=== PATIENT | female | born 1945 | race Caucasian/White ===

== ENCOUNTER 2017-03-22 08:15 | Inpatient (IN) | payer MEDICARE, BC ==
[2017-03-22] MEDS ORDERED: Albuterol/Ipratropium 3.0-0.5 MG/3 ML Neb Soln NEB ONE (09:01)
[2017-03-22] MEDS ORDERED: Sodium Chloride 0.9% 1,000 ML IV ONE (09:02)
[2017-03-22] MEDS ORDERED: cefTRIAXone 1 GM Vial IM ONE (09:54)
[2017-03-22] MEDS ORDERED: Azithromycin 500 MG in Sodium Chloride 0.9% 250 ML IV SCH (10:00)
[2017-03-22] MEDS ORDERED: cefTRIAXone 1 GM in Sodium Chloride 0.9% 50 ML IV ONE (10:50)
--- NOTE | 2017-03-22 11:08 | CR ---
INDICATION: Rales, right base posteriorly, short of breath, weak. CHEST: Portable AP upright view of the chest 03/22/2017 was obtained. No comparisons were available. Hyperaeration and somewhat flattened diaphragm leaves suggest COPD. The chest is rotated to the right, limiting the examination somewhat. There appear to be infiltrates at the right lung base extending into the mid lung field, which may be on the basis of pneumonia. Some atelectatic change could be present. Interstitial changes are also suggested. These may be fibrotic in nature, but should be correlated clinically. The heart size is difficult to evaluate, but did not appear grossly enlarged. Overlying snaps are noted. Cannot exclude scoliosis due to the rotation. IMPRESSION: 1. Possible infiltrate compatible with pneumonia at the right lower lung field and lung base. PA and lateral views, when clinically possible should be of further diagnostic benefit in that regard. 2. Probable COPD. MTDD
[2017-03-22] MEDS ORDERED: Iopamidol 755 Mg/ML 75 ML Bottle IV ONE (11:37)
[2017-03-22] MEDS ORDERED: Bisacodyl 5 MG Tab PO PRN (12:41)
[2017-03-22] MEDS ORDERED: Ondansetron 4 MG Tab.DIS PO PRN (12:41)
[2017-03-22] MEDS ORDERED: Acetaminophen 325 MG Tab PO PRN (12:41)
[2017-03-22] MEDS: Ibuprofen 400 MG Tab PO PRN ×2 (13:57→20:27)
[2017-03-22] MEDS: Enoxaparin 30 MG/0.3 ML Syringe SUBCUT SCH (14:27)
--- NOTE | 2017-03-22 14:42 | CT ---
INDICATION: Short of breath, cough, right middle lobe pneumonia, D-dimer 3,380. CT CHEST ANGIOGRAPHY: Spiral 1.25 mm axial sections were obtained through the chest with 50 mL Isovue 370 at 3 mL/second and with sagittal and coronal reconstructions 03/22/2017 and were compared with a chest x-ray of the same date. No other comparisons are available. Total exam DLP = 252.86 mGy-cm. Fibrotic changes are noted at the lung apices and scattered about the lungs and pleural spaces. Additionally, there may be acute pneumonia present in the area of the superior segment of the left lower lobe and basilar left lower lobe; however, more extensively, there is infiltration in the right lower lobe with pleural reaction - pleuritis, suggesting pneumonia and pleuritis involving much of the right lower lobe. Portions of the middle lobe also show evidence of infiltration, compatible with pneumonia. A portion of these changes may be fibrotic in nature - no comparison studies were available. No gross abnormality of the upper abdomen included was noted. The heart did not appear enlarged. No definite mediastinal masses were identified. Findings compatible with rheumatoid spondylitis are noted in the thoracic spine. An appearance of nodularity at the lingula may represent a small fluid collection in the major fissure in that area (pseudotumor). No true nodularity was identified. Although pneumonia is felt to be most likely with the scattered infiltrates present and pleuritis, the possibility of metastatic disease would also be a consideration. Followup to clearing is recommended, therefore. No definite evidence of pulmonary emboli could be identified. IMPRESSION: 1. No evidence of pulmonary embolus. 2. Fairly extensive infiltration in the right lower lobe, middle lobe, and to a lesser extent left lower lobe. These infiltrates are associated with pleural reactions and likely represent pneumonia and pleuritis. Other etiologies, such as metastatic disease, are felt to be less likely. Followup to clearing is recommended. 3. Rheumatoid spondylitis and dorsal kyphosis. Report was called to Dr. Khoury at 1215 hours on 03/22/2017. [facility]
[2017-03-22] MEDS: Albuterol/Ipratropium 3.0-0.5 MG/3 ML Neb Soln INH SCH ×2 (15:09→20:07)
[2017-03-22] MEDS: Sodium Chloride 0.9% 1,000 ML IV SCH ×2 (15:58→23:58)
--- NOTE | 2017-03-22 18:08 | PCM.HP ---
H&P History of Present Illness - General Date of Service: 03/22/17 Admit Problem/Dx: Admission Diagnosis/Problem Admission Diagnosis/Problem Pneumonia Source of Information: Patient History Limitations: Reports: No limitations - History of Present Illness Initial Comments - Free Text/Narative: This is a 71-year-old female patient states about one week ago she lifted her grandchild and became short of breath. After that she became progressively short of breath to the point where she only take 3 steps last night. She has some chest congestion but no cough. She states she's had fevers and chills all week. She denies nasal congestion, sore throat, headaches, body aches. She has a decreased appetite and generalized weakness and lethargy. Left Chest Pain Score (Numeric/FACES): 6 - Related Data Allergies/Adverse Reactions: Allergies Allergy/AdvReac Type Severity Reaction Status Date / Time No Known Allergies Allergy Verified 03/22/17 08:39 Home Medications: Home Meds Albuterol [Ventolin HFA] 2 puff INH Q4HR 03/22/17 [History] Levothyroxine 112 mcg PO BEDTIME 03/22/17 [History] Simvastatin [Simvastatin] 20 mg PO BEDTIME 03/22/17 [History] Past Medical History Cardiovascular History: Reports: High cholesterol Respiratory History: Reports: Pneumonia, recurrent, SOB, Other (see below) Other Respiratory History: PT CURRENTLY HAS KATRIN. PNEUMONIA. Gastrointestinal History: Reports: Hemorrhoids HIGH [employer]CHO[employer] PROFESSIONAL History: Reports: Other OB/BYN History: has had one ovary removed Musculoskeletal History: Reports: Other (see below) Other Musculoskeletal History: ankylosing spondylitis Endocrine/Metabolic History: Reports: Hypothyroidism - Infectious Disease History Infectious Disease History: Reports: Chicken pox, Measles - Past Surgical History HEENT Surgical History: Reports: Visual GI Surgical History: Reports: Colonoscopy, Other (see below) Other GI Surgeries/Procedures: HAD HEMORROID SURGERY IN PAST Female Surgical History: Reports: Other (see below) Other Female Surgeries/Procedures: HAD ONE OVARY REMOVED. Musculoskeletal Surgical History: Reports: Shoulder surgery, Other (see below) Other Musculoskeletal Surgeries/Procedures:: LEFT SHOULDER TENDON REPAIR Social & Family History - Family History Family Medical History: Noncontributory - Tobacco Use Smoking Status *Q: Former Smoker Years of Tobacco use: 30 Packs/Tins Daily: 1 Used Tobacco, but Quit: No Month Tobacco Last Used: October Second Hand Smoke Exposure: No - Caffeine Use Caffeine Use: Reports: Coffee Caffeine Use Comment: 3 CUPS A DAY - Recreational Drug Use Recreational Drug Use: No H&P Review of Systems - Review of Systems: Review Of Systems: See Below General: Reports: fever, chills, fatigue, decreased appetite HEENT: Reports: no symptoms Pulmonary: Reports: Shortness of Breath. Denies: Wheezing, Pleuritic Chest Pain , Cough, Sputum, Hemoptysis Cardiovascular: Reports: no symptoms Gastrointestinal: Reports: No symptoms Genitourinary: Reports: no symptoms Musculoskeletal: Reports: no symptoms Skin: Reports: no symptoms Psychiatric: Reports: no symptoms Neurological: Reports: No Symptoms Hematologic/Lymphatic: Reports: no symptoms Immunologic: Reports: no symptoms Exam - Exam Exam: See Below - Vital Signs Vital Signs: Last Vital Signs Temp 98.0 F 03/22/17 16:01 Pulse 111 H 03/22/17 16:01 Resp 18 03/22/17 16:01 BP 119/67 03/22/17 16:01 Pulse Ox 91 L 03/22/17 17:50 Weight: 92 lb 5 oz - Exam General: alert, oriented, cooperative HEENT: PERRLA, Hearing intact, Mucosa moist & pink, Nares patent, Normal nasal septum, Posterior pharynx clear, Conjunctiva clear, EOMI, EACs clear, TMs clear Neck: supple, trachea midline Lungs: Clear to auscultation, Normal respiratory effort, Decreased breath sounds Cardiovascular: regular rate, regular rhythm. No: systolic murmur, diastolic murmur Abdomen: normal bowel sounds, soft. No: organomegaly, guarding, rigidity, rebound, tenderness Back Exam: normal inspection Extremities: normal inspection. No: edema Skin: warm, dry, intact Neuro Extensive - Mental Status: alert, oriented x3, normal mood/affect, normal cognition Neuro Extensive - Motor, Sensory, Reflexes: normal gait Psychiatric: alert, normal affect, normal mood - Patient Data Lab Results last 24 hrs: Laboratory Results - last 24 hr 03/22/17 Range/Units 16:00 Lactic Acid 1.6 (0.5-2.2) mmol/L Result Diagrams: 03/22/17 08:55 03/22/17 08:55 *Q Meaningful Use (ADM) - VTE *Q VTE Criteria *Q: - Stroke *Q Stroke Criteria *Q: - AMI *Q AMI Criteria *Q: - Problem List (1) Pneumonia SNOMED Code(s): 898146885 ICD Code: J18.9 - PNEUMONIA, UNSPECIFIED ORGANISM Status: Acute Current Visit: Yes Qualifiers: Laterality: right Lung location: lower lobe of lung Problem List Initiated/Reviewed/Updated: Yes Orders Last 24hrs: Active Orders 24 hr Category Date Time Status C Collar Applied [Spinal Immobilization] [] 08,16,00 Care 03/22/17 12:56 Active VTE/DVT Education [] Per Unit Routine Care 03/22/17 12:41 Active Regular Diet [DIET] Diet 03/22/17 Dinner Active Acetaminophen [Tylenol] Med 03/22/17 12:41 Active 650 mg PO Q4H PRN Albuterol/Ipratropium [DuoNeb 3.0-0.5 MG/3 ML] Med 03/22/17 16:00 Active 3 ml INH QIDRT Azithromycin [Zithromax] 500 mg Med 03/23/17 10:00 Active Sodium Chloride 0.9% [Normal Saline] 250 ml IV Q24H Bisacodyl [Dulcolax] Med 03/22/17 12:41 Active 5 mg PO DAILY PRN Enoxaparin [Lovenox] Med 03/22/17 13:00 Active 30 mg SUBCUT Q24H Ibuprofen [Motrin] Med 03/22/17 12:41 Active 400 mg PO Q6H PRN Levothyroxine Med 03/22/17 21:00 Active 112 mcg PO BEDTIME Ondansetron [Zofran ODT] Med 03/22/17 12:41 Active 4 mg PO Q4H PRN Simvastatin [Zocor] Med 03/22/17 21:00 Active 20 mg PO BEDTIME Sodium Chloride 0.9% [Normal Saline] 1,000 ml Med 03/22/17 13:00 Active IV ASDIRECTED cefTRIAXone [Rocephin] 1 gm Med 03/23/17 11:00 Active Sodium Chloride 0.9% [Normal Saline] 50 ml IV Q24H Medication Orders Acetaminophen (Tylenol) 650 mg PO Q4H PRN PRN Reason: Pain (Mild 1-3)/fever Albuterol/Ipratropium (Duoneb 3.0-0.5 Mg/3 Ml) 3 ml INH QIDRT [facility] Last Admin: 03/22/17 15:09 Dose: 3 ml Bisacodyl (Dulcolax) 5 mg PO DAILY PRN PRN Reason: Constipation Enoxaparin Sodium (Lovenox) 30 mg SUBCUT Q24H [facility] Last Admin: 03/22/17 14:27 Dose: 30 mg Sodium Chloride (Normal Saline) 1,000 mls @ 125 mls/hr IV ASDIRECTED [facility] Last Admin: 03/22/17 15:58 Dose: 125 mls/hr Azithromycin 500 mg/ Sodium (Chloride) 250 mls @ 250 mls/hr IV Q24H [facility] Ceftriaxone Sodium 1 gm/ (Sodium Chloride) 50 mls @ 100 mls/hr IV Q24H [facility] Ibuprofen (Motrin) 400 mg PO Q6H PRN PRN Reason: Pain (mild 1-3) Last Admin: 03/22/17 13:57 Dose: 400 mg Levothyroxine Sodium (Levothyroxine) 112 mcg PO BEDTIME [facility] Ondansetron HCl (Zofran Odt) 4 mg PO Q4H PRN PRN Reason: nausea, able to take PO Simvastatin (Zocor) 20 mg PO BEDTIME [facility] Assessment/Plan Comment:: 1. Admit for Rocephin and Zithromax. 2. Reviewed CT report of chest x-ray report. 3. O2 to keep sats greater than 90% nasal cannula. 4. IV fluids. 5. Regular diet. 6. Up ad jane. for activity. 7. Recheck CBC in a.m. 8. Nebulizers every 4 hours and q. 2 hours when necessary.
[2017-03-22] MEDS: Simvastatin 20 MG Tab PO SCH (20:27)
[2017-03-22] MEDS: Levothyroxine 112 MCG Tab PO SCH (20:27)
[2017-03-23] MEDS: Albuterol/Ipratropium 3.0-0.5 MG/3 ML Neb Soln INH SCH ×4 (06:28→20:31)
[2017-03-23] MEDS: Sodium Chloride 0.9% 1,000 ML IV SCH (07:43)
--- NOTE | 2017-03-23 08:50 | PCM.PN ---
- General Info Date of Service: 03/23/17 Admission Dx/Problem (Free Text): Patient states that she had no fevers or chills last night. Breathing maybe a little bit better in the fact that she didn't have any wheezing or chest congestion. She still feels weak and with very little appetite. She does not have a cough and has not had one. Denies chest pain. Denies leg swelling. - Patient Data Vitals - most recent: Last Vital Signs Temp 98.3 F 03/23/17 04:00 Pulse 95 03/23/17 04:00 Resp 18 03/23/17 04:00 BP 102/48 L 03/23/17 04:00 Pulse Ox 93 L 03/23/17 04:00 Weight - most recent: 92 lb 5 oz I&O - last 24 hours: Intake & Output 03/22/17 03/23/17 03/23/17 22:59 06:59 14:59 Intake Total 1321 779 Balance 1321 779 Lab Results last 24 hrs: Laboratory Results - last 24 hr 03/22/17 03/23/17 Range/Units 16:00 06:25 WBC 15.6 H (4.5-12.0) X10-3/uL RBC 3.59 (3.23-5.20) x10(6)uL Hgb 10.6 L (11.5-15.5) g/dL Hct 31.2 (30.0-51.3) % MCV 86.9 (80-96) fL MCH 29.5 (27.7-33.6) pg MCHC 34.0 (32.2-35.4) g/dL RDW 12.2 (11.5-15.5) % Plt Count 252 (125-369) X10(3)uL MPV 7.7 (7.4-10.4) fL Add Manual Diff Yes Neutrophils % (Manual) 69 (46-82) % Band Neutrophils % 10 H (0-6) % Lymphocytes % (Manual) 7 L (13-37) % Monocytes % (Manual) 14 H (4-12) % Lactic Acid 1.6 (0.5-2.2) mmol/L Med Orders - Current: Current Medications Acetaminophen (Tylenol) 650 mg PO Q4H PRN PRN Reason: Pain (Mild 1-3)/fever Albuterol/Ipratropium (Duoneb 3.0-0.5 Mg/3 Ml) 3 ml INH QIDRT [facility] Last Admin: 03/23/17 06:28 Dose: 3 ml Bisacodyl (Dulcolax) 5 mg PO DAILY PRN PRN Reason: Constipation Enoxaparin Sodium (Lovenox) 30 mg SUBCUT Q24H [facility] Last Admin: 03/22/17 14:27 Dose: 30 mg Sodium Chloride (Normal Saline) 1,000 mls @ 125 mls/hr IV ASDIRECTED [facility] Last Admin: 03/23/17 07:43 Dose: 125 mls/hr Azithromycin 500 mg/ Sodium (Chloride) 250 mls @ 250 mls/hr IV Q24H [facility] Ceftriaxone Sodium 1 gm/ (Sodium Chloride) 50 mls @ 100 mls/hr IV Q24H [facility] Ibuprofen (Motrin) 400 mg PO Q6H PRN PRN Reason: Pain (mild 1-3) Last Admin: 03/22/17 20:27 Dose: 400 mg Levothyroxine Sodium (Levothyroxine) 112 mcg PO BEDTIME [facility] Last Admin: 03/22/17 20:27 Dose: 112 mcg Ondansetron HCl (Zofran Odt) 4 mg PO Q4H PRN PRN Reason: nausea, able to take PO Simvastatin (Zocor) 20 mg PO BEDTIME [facility] Last Admin: 03/22/17 20:27 Dose: 20 mg Discontinued Medications Albuterol/Ipratropium (Duoneb 3.0-0.5 Mg/3 Ml) 3 ml NEB ONETIME ONE Stop: 03/22/17 09:02 Last Admin: 03/22/17 09:17 Dose: 3 ml Ceftriaxone Sodium (Rocephin) 1 gm IM ONETIME ONE Stop: 03/22/17 09:55 Last Admin: 03/22/17 12:22 Dose: Not Given Sodium Chloride (Normal Saline) 1,000 mls @ 999 mls/hr IV .BOLUS ONE Stop: 03/22/17 10:02 Last Infusion: 03/22/17 09:43 Dose: 100 mls/hr Azithromycin 500 mg/ Sodium (Chloride) 250 mls @ 250 mls/hr IV Q24H [facility] Last Admin: 03/22/17 12:01 Dose: 250 mls/hr Ceftriaxone Sodium 1 gm/ (Sodium Chloride) 50 mls @ 200 mls/hr IV ONETIME ONE Stop: 03/22/17 11:04 Last Admin: 03/22/17 11:07 Dose: 200 mls/hr Iopamidol (Isovue-370 (76%)) 75 ml IV ONETIME ONE Stop: 03/22/17 11:38 Last Admin: 03/22/17 11:43 Dose: 50 ml - Exam General: alert, oriented, cooperative Neck: supple, trachea midline Lungs: Clear to auscultation, Decreased breath sounds. No: Crackles, Rales, Rhonchi, Rub Cardiovascular: Regular Rate, Regular Rhythm. No: No Murmurs Extremities: no edema - Problem List & Annotations (1) Pneumonia SNOMED Code(s): 063762650 Code(s): J18.9 - PNEUMONIA, UNSPECIFIED ORGANISM Status: Acute Current Visit: Yes Qualifiers: Laterality: right Lung location: lower lobe of lung - Problem List Review Problem List Initiated/Reviewed/Updated: Yes - My Orders Last 24 Hours: My Active Orders 03/22/17 Dinner Regular Diet [DIET] - Plan Plan:: 1. continue current antibiotic treatment. 2. Change IV fluids to D5 half-normal at 100 mL an hour. 3. Patient is a full code after discussion. 4. Sputum culture.
[2017-03-23] MEDS: Dextrose 5%-0.45% NaCl 1,000 ML IV SCH ×2 (09:06→21:00)
[2017-03-23] MEDS: Azithromycin 500 MG in Sodium Chloride 0.9% 250 ML IV SCH (10:10)
[2017-03-23] MEDS: cefTRIAXone 1 GM in Sodium Chloride 0.9% 50 ML IV SCH (11:34)
[2017-03-23] MEDS: Enoxaparin 30 MG/0.3 ML Syringe SUBCUT SCH (13:55)
[2017-03-23] MEDS: Glycerin Adult 2.1 GM Supp RECTAL SCH ×2 (15:44→20:31)
[2017-03-23] MEDS: Levothyroxine 112 MCG Tab PO SCH (20:31)
[2017-03-23] MEDS: Simvastatin 20 MG Tab PO SCH (20:31)
[2017-03-23] MEDS: Ibuprofen 400 MG Tab PO PRN (20:31)
[2017-03-24] MEDS: Dextrose 5%-0.45% NaCl 1,000 ML IV SCH (06:19)
[2017-03-24] MEDS: Albuterol/Ipratropium 3.0-0.5 MG/3 ML Neb Soln INH SCH ×4 (06:20→20:01)
--- NOTE | 2017-03-24 08:06 | PCM.PN ---
- General Info Date of Service: 03/24/17 Admission Dx/Problem (Free Text): Patient states she feels much better. She denies fevers, chills, shortness of breath. She's off her oxygen. She states she's able to walk the halls without any shortness of breath. But she does qualify that she is walking slow and not my usual pace. She denies coughing. She says she's not sleeping and would like something for sleep she also takes 2 Advil 200 mg before bedtime for aches and pains. - Patient Data Vitals - most recent: Last Vital Signs Temp 97.7 F 03/24/17 04:00 Pulse 82 03/24/17 04:00 Resp 20 03/24/17 04:00 BP 127/67 03/24/17 04:00 Pulse Ox 93 L 03/24/17 04:00 Weight - most recent: 92 lb 5 oz I&O - last 24 hours: Intake & Output 03/23/17 03/24/17 03/24/17 22:59 06:59 14:59 Intake Total 899 698 Balance 899 698 Med Orders - Current: Current Medications Acetaminophen (Tylenol) 650 mg PO Q4H PRN PRN Reason: Pain (Mild 1-3)/fever Albuterol/Ipratropium (Duoneb 3.0-0.5 Mg/3 Ml) 3 ml INH QIDRT [facility] Last Admin: 03/24/17 06:20 Dose: 3 ml Bisacodyl (Dulcolax) 5 mg PO DAILY PRN PRN Reason: Constipation Enoxaparin Sodium (Lovenox) 30 mg SUBCUT Q24H [facility] Last Admin: 03/23/17 13:55 Dose: 30 mg Glycerin (Sani-Supp Adult) 1 supp RECTAL BID [facility] Last Admin: 03/23/17 20:31 Dose: 1 supp Azithromycin 500 mg/ Sodium (Chloride) 250 mls @ 250 mls/hr IV Q24H [facility] Last Admin: 03/23/17 10:10 Dose: 250 mls/hr Ceftriaxone Sodium 1 gm/ (Sodium Chloride) 50 mls @ 100 mls/hr IV Q24H [facility] Last Admin: 03/23/17 11:34 Dose: 100 mls/hr Ibuprofen (Motrin) 400 mg PO Q6H PRN PRN Reason: Pain (mild 1-3) Last Admin: 03/23/17 20:31 Dose: 400 mg Ibuprofen (Motrin) 400 mg PO BEDTIME [facility] Levothyroxine Sodium (Levothyroxine) 112 mcg PO BEDTIME [facility] Last Admin: 03/23/17 20:31 Dose: 112 mcg Ondansetron HCl (Zofran Odt) 4 mg PO Q4H PRN PRN Reason: nausea, able to take PO Simvastatin (Zocor) 20 mg PO BEDTIME [facility] Last Admin: 03/23/17 20:31 Dose: 20 mg Zolpidem Tartrate (Ambien) 5 mg PO BEDTIME [facility] Discontinued Medications Albuterol/Ipratropium (Duoneb 3.0-0.5 Mg/3 Ml) 3 ml NEB ONETIME ONE Stop: 03/22/17 09:02 Last Admin: 03/22/17 09:17 Dose: 3 ml Ceftriaxone Sodium (Rocephin) 1 gm IM ONETIME ONE Stop: 03/22/17 09:55 Last Admin: 03/22/17 12:22 Dose: Not Given Sodium Chloride (Normal Saline) 1,000 mls @ 999 mls/hr IV .BOLUS ONE Stop: 03/22/17 10:02 Last Infusion: 03/22/17 09:43 Dose: 100 mls/hr Azithromycin 500 mg/ Sodium (Chloride) 250 mls @ 250 mls/hr IV Q24H [facility] Last Admin: 03/22/17 12:01 Dose: 250 mls/hr Ceftriaxone Sodium 1 gm/ (Sodium Chloride) 50 mls @ 200 mls/hr IV ONETIME ONE Stop: 03/22/17 11:04 Last Admin: 03/22/17 11:07 Dose: 200 mls/hr Sodium Chloride (Normal Saline) 1,000 mls @ 125 mls/hr IV ASDIRECTED [facility] Last Admin: 03/23/17 07:43 Dose: 125 mls/hr Dextrose/Sodium Chloride (Dextrose 5%-1/2 Ns) 1,000 mls @ 100 mls/hr IV ASDIRECTED [facility] Last Admin: 03/24/17 06:19 Dose: 100 mls/hr Iopamidol (Isovue-370 (76%)) 75 ml IV ONETIME ONE Stop: 03/22/17 11:38 Last Admin: 03/22/17 11:43 Dose: 50 ml - Exam Quality Assessment: No: supplemental oxygen General: alert, oriented, cooperative Lungs: Clear to auscultation, Normal respiratory effort, Decreased breath sounds (But improved). No: Crackles, Rales, Rhonchi Cardiovascular: Regular Rate, Regular Rhythm. No: No Murmurs Extremities: no edema - Problem List & Annotations (1) Pneumonia SNOMED Code(s): 966491246 Code(s): J18.9 - PNEUMONIA, UNSPECIFIED ORGANISM Status: Acute Current Visit: Yes Qualifiers: Laterality: right Lung location: lower lobe of lung - Problem List Review Problem List Initiated/Reviewed/Updated: Yes - My Orders Last 24 Hours: My Active Orders 03/23/17 08:50 CULTURE SPUTUM + SMEAR [RM] Routine Resuscitation Status Routine 03/23/17 14:45 Glycerin [Sani-Supp Adult] 1 supp RECTAL BID 03/24/17 08:03 Convert IV to Saline Lock [OM.PC] Routine 03/24/17 21:00 Ibuprofen [Motrin] 400 mg PO BEDTIME Zolpidem [Ambien] 5 mg PO BEDTIME - Plan Plan:: 1. DC IV fluids 2. Saline lock IV. 3. 5 mg Ambien each bedtime. 4. 200 mg Advil at at bedtime. 5. Continue Zithromax and Rocephin IV.
[2017-03-24] MEDS: Glycerin Adult 2.1 GM Supp RECTAL SCH ×2 (08:27→20:00)
[2017-03-24] MEDS: Azithromycin 500 MG in Sodium Chloride 0.9% 250 ML IV SCH (09:44)
[2017-03-24] MEDS: cefTRIAXone 1 GM in Sodium Chloride 0.9% 50 ML IV SCH (11:09)
[2017-03-24] MEDS: Enoxaparin 30 MG/0.3 ML Syringe SUBCUT SCH (13:37)
[2017-03-24] MEDS: Levothyroxine 112 MCG Tab PO SCH (20:00)
[2017-03-24] MEDS: Simvastatin 20 MG Tab PO SCH (20:01)
[2017-03-24] MEDS ORDERED: Ibuprofen 400 MG Tab PO SCH (21:00)
[2017-03-24] MEDS ORDERED: Zolpidem 5 MG Tab PO SCH (21:00)
[2017-03-25] MEDS: Albuterol/Ipratropium 3.0-0.5 MG/3 ML Neb Soln INH SCH (06:30)
--- NOTE | 2017-03-25 08:09 | PCM.PN ---
- General Info Date of Service: 03/25/17 Admission Dx/Problem (Free Text): Patient with no concerns today. She denies cough, fevers, chills, shortness of breath, leg swelling. She is able to tolerate fluids and food today. - Patient Data Vitals - most recent: Last Vital Signs Temp 98.5 F 03/25/17 00:00 Pulse 88 03/25/17 00:00 Resp 18 03/25/17 00:00 BP 138/73 03/25/17 00:00 Pulse Ox 90 L 03/25/17 00:00 Weight - most recent: 92 lb 5 oz I&O - last 24 hours: Intake & Output 03/24/17 03/25/17 03/25/17 22:59 06:59 14:59 Intake Total 0 Balance 0 Med Orders - Current: Current Medications Acetaminophen (Tylenol) 650 mg PO Q4H PRN PRN Reason: Pain (Mild 1-3)/fever Albuterol/Ipratropium (Duoneb 3.0-0.5 Mg/3 Ml) 3 ml INH QIDRT [facility] Last Admin: 03/25/17 06:30 Dose: 3 ml Bisacodyl (Dulcolax) 5 mg PO DAILY PRN PRN Reason: Constipation Enoxaparin Sodium (Lovenox) 30 mg SUBCUT Q24H [facility] Last Admin: 03/24/17 13:37 Dose: 30 mg Glycerin (Sani-Supp Adult) 1 supp RECTAL BID [facility] Last Admin: 03/24/17 20:00 Dose: Not Given Azithromycin 500 mg/ Sodium (Chloride) 250 mls @ 250 mls/hr IV Q24H [facility] Last Admin: 03/24/17 09:44 Dose: 250 mls/hr Ceftriaxone Sodium 1 gm/ (Sodium Chloride) 50 mls @ 100 mls/hr IV Q24H [facility] Last Admin: 03/24/17 11:09 Dose: 100 mls/hr Ibuprofen (Motrin) 400 mg PO Q6H PRN PRN Reason: Pain (mild 1-3) Last Admin: 03/23/17 20:31 Dose: 400 mg Ibuprofen (Motrin) 400 mg PO BEDTIME [facility] Last Admin: 03/24/17 20:01 Dose: 400 mg Levothyroxine Sodium (Levothyroxine) 112 mcg PO BEDTIME [facility] Last Admin: 03/24/17 20:00 Dose: 112 mcg Ondansetron HCl (Zofran Odt) 4 mg PO Q4H PRN PRN Reason: nausea, able to take PO Simvastatin (Zocor) 20 mg PO BEDTIME [facility] Last Admin: 03/24/17 20:01 Dose: 20 mg Zolpidem Tartrate (Ambien) 5 mg PO BEDTIME [facility] Last Admin: 03/24/17 20:00 Dose: 5 mg Discontinued Medications Albuterol/Ipratropium (Duoneb 3.0-0.5 Mg/3 Ml) 3 ml NEB ONETIME ONE Stop: 03/22/17 09:02 Last Admin: 03/22/17 09:17 Dose: 3 ml Ceftriaxone Sodium (Rocephin) 1 gm IM ONETIME ONE Stop: 03/22/17 09:55 Last Admin: 03/22/17 12:22 Dose: Not Given Sodium Chloride (Normal Saline) 1,000 mls @ 999 mls/hr IV .BOLUS ONE Stop: 03/22/17 10:02 Last Infusion: 03/22/17 09:43 Dose: 100 mls/hr Azithromycin 500 mg/ Sodium (Chloride) 250 mls @ 250 mls/hr IV Q24H [facility] Last Admin: 03/22/17 12:01 Dose: 250 mls/hr Ceftriaxone Sodium 1 gm/ (Sodium Chloride) 50 mls @ 200 mls/hr IV ONETIME ONE Stop: 03/22/17 11:04 Last Admin: 03/22/17 11:07 Dose: 200 mls/hr Sodium Chloride (Normal Saline) 1,000 mls @ 125 mls/hr IV ASDIRECTED [facility] Last Admin: 03/23/17 07:43 Dose: 125 mls/hr Dextrose/Sodium Chloride (Dextrose 5%-1/2 Ns) 1,000 mls @ 100 mls/hr IV ASDIRECTED [facility] Last Admin: 03/24/17 06:19 Dose: 100 mls/hr Iopamidol (Isovue-370 (76%)) 75 ml IV ONETIME ONE Stop: 03/22/17 11:38 Last Admin: 03/22/17 11:43 Dose: 50 ml - Exam General: alert, oriented, cooperative Neck: supple Lungs: Clear to auscultation, Normal respiratory effort, Decreased breath sounds. No: Crackles, Rales, Rhonchi Cardiovascular: Regular Rate, Regular Rhythm, Murmurs (Systolic) Extremities: no edema - Problem List & Annotations (1) Pneumonia SNOMED Code(s): 957090838 Code(s): J18.9 - PNEUMONIA, UNSPECIFIED ORGANISM Status: Acute Current Visit: Yes Qualifiers: Laterality: right Lung location: lower lobe of lung (2) Systolic murmur SNOMED Code(s): 20099650 Code(s): R01.1 - CARDIAC MURMUR, UNSPECIFIED Status: Acute Current Visit : Yes - Problem List Review Problem List Initiated/Reviewed/Updated: Yes - My Orders Last 24 Hours: My Active Orders 03/24/17 08:03 Convert IV to Saline Lock [OM.PC] Routine 03/24/17 21:00 Ibuprofen [Motrin] 400 mg PO BEDTIME Zolpidem [Ambien] 5 mg PO BEDTIME - Plan Plan:: 1. on previous exams I did not hear her murmur. Since it was new to me and what looked on the old chart and it's been documented before. 2. Discharge to home on Zithromax and Augmentin. 3. Recheck with Dr. Junior in 7-10 days.
--- NOTE | 2017-03-25 08:28 | PCM.DCSUM1 ---
Discharge Summary - Hospital Course Free Text/Narrative:: Hospital course-patient had chest x-ray that showed right lower lobe pneumonia. The argon did a d-dimer that was elevated so we did a CT which showed right middle, right lower lobe and a little bit in the left lower lobe pneumonia. Patient was hypoxic and admitted. She started Rocephin and Zithromax IV with IV fluids. She had decreased appetite. Her white count was 18,000. The steroid, down to 15. Patient felt much better. By the end of day 2 she was able to be get off her oxygen. Continued her IV antibiotics while she was here. Patient had a very quick recovery. Did not repeat chest x-rays or lab work after the second day because of her progress. Brief History: his is a 71-year-old female patient states about one week ago she lifted her grandchild and became short of breath. After that she became progressively short of breath to the point where she only take 3 steps last night. She has some chest congestion but no cough. She states she's had fevers and chills all week. She denies nasal congestion, sore throat, headaches , body aches. She has a decreased appetite and generalized weakness and lethargy. - Discharge Data Discharge Date: 03/25/17 Discharge Disposition: Home, Self-Care 01 Condition: Good - Discharge Diagnosis/Problem(s) (1) Pneumonia SNOMED Code(s): 320613571 ICD Code: J18.9 - PNEUMONIA, UNSPECIFIED ORGANISM Status: Acute Current Visit: Yes Qualifiers: Laterality: unspecified laterality Lung location: lower lobe of lung (2) Hypoxia SNOMED Code(s): 560666364, 835591431 ICD Code: R09.02 - HYPOXEMIA Status: Acute Current Visit: Yes - Patient Instructions Diet: Regular Diet as Tolerated Activity: As Tolerated Driving: May Drive Today Showering/Bathing: May Shower Notify Provider of: Fever, Increased Pain, Nausea and/or Vomiting Other/Special Instructions: 1. Recheck with Dr. Junior in 7-10 days - Discharge Plan Prescriptions/Med Rec: Amoxicillin/Clavulanate K [Augmentin 500 MG\125 MG] 1 tab PO TID #24 tab Azithromycin [Zithromax] 250 mg PO DAILY #3 tablet Home Medications: Home Meds Albuterol [Ventolin HFA] 2 puff INH Q4HR 04/21/17 [History] Levothyroxine 112 mcg PO BEDTIME 03/22/17 [History] Simvastatin 20 mg PO BEDTIME 03/22/17 [History] Amoxicillin/Clavulanate K [Augmentin 500 MG\125 MG] 1 tab PO TID #24 tab [Rx] Azithromycin [Zithromax] 250 mg PO DAILY #3 tablet 03/25/17 [Rx] Patient Handouts: Fall Prevention in Hospitals, Adult, Venous Thromboembolism Prevention, Community-Acquired Pneumonia, Adult, [id number] Forms: ED Department Discharge Referrals: Brennan Junior MD [Primary Care Provider] - - Discharge Summary/Plan Comment DC Time >30 min.: No - Patient Data Vitals - Most Recent: Last Vital Signs Temp 98.5 F 03/25/17 00:00 Pulse 88 03/25/17 00:00 Resp 18 03/25/17 00:00 BP 138/73 03/25/17 00:00 Pulse Ox 90 L 03/25/17 00:00 Weight - Most Recent: 92 lb 5 oz I&O - Last 24 hours: Intake & Output 03/24/17 03/25/17 03/25/17 22:59 06:59 14:59 Intake Total 0 Balance 0 Med Orders - Current: Current Medications Acetaminophen (Tylenol) 650 mg PO Q4H PRN PRN Reason: Pain (Mild 1-3)/fever Albuterol/Ipratropium (Duoneb 3.0-0.5 Mg/3 Ml) 3 ml INH QIDRT [facility] Last Admin: 03/25/17 06:30 Dose: 3 ml Bisacodyl (Dulcolax) 5 mg PO DAILY PRN PRN Reason: Constipation Enoxaparin Sodium (Lovenox) 30 mg SUBCUT Q24H [facility] Last Admin: 03/24/17 13:37 Dose: 30 mg Glycerin (Sani-Supp Adult) 1 supp RECTAL BID [facility] Last Admin: 03/24/17 20:00 Dose: Not Given Azithromycin 500 mg/ Sodium (Chloride) 250 mls @ 250 mls/hr IV Q24H [facility] Last Admin: 03/24/17 09:44 Dose: 250 mls/hr Ceftriaxone Sodium 1 gm/ (Sodium Chloride) 50 mls @ 100 mls/hr IV Q24H [facility] Last Admin: 03/24/17 11:09 Dose: 100 mls/hr Ibuprofen (Motrin) 400 mg PO Q6H PRN PRN Reason: Pain (mild 1-3) Last Admin: 03/23/17 20:31 Dose: 400 mg Ibuprofen (Motrin) 400 mg PO BEDTIME [facility] Last Admin: 03/24/17 20:01 Dose: 400 mg Levothyroxine Sodium (Levothyroxine) 112 mcg PO BEDTIME [facility] Last Admin: 03/24/17 20:00 Dose: 112 mcg Ondansetron HCl (Zofran Odt) 4 mg PO Q4H PRN PRN Reason: nausea, able to take PO Simvastatin (Zocor) 20 mg PO BEDTIME [facility] Last Admin: 03/24/17 20:01 Dose: 20 mg Zolpidem Tartrate (Ambien) 5 mg PO BEDTIME [facility] Last Admin: 03/24/17 20:00 Dose: 5 mg Discontinued Medications Albuterol/Ipratropium (Duoneb 3.0-0.5 Mg/3 Ml) 3 ml NEB ONETIME ONE Stop: 03/22/17 09:02 Last Admin: 03/22/17 09:17 Dose: 3 ml Ceftriaxone Sodium (Rocephin) 1 gm IM ONETIME ONE Stop: 03/22/17 09:55 Last Admin: 03/22/17 12:22 Dose: Not Given Sodium Chloride (Normal Saline) 1,000 mls @ 999 mls/hr IV .BOLUS ONE Stop: 03/22/17 10:02 Last Infusion: 03/22/17 09:43 Dose: 100 mls/hr Azithromycin 500 mg/ Sodium (Chloride) 250 mls @ 250 mls/hr IV Q24H [facility] Last Admin: 03/22/17 12:01 Dose: 250 mls/hr Ceftriaxone Sodium 1 gm/ (Sodium Chloride) 50 mls @ 200 mls/hr IV ONETIME ONE Stop: 03/22/17 11:04 Last Admin: 03/22/17 11:07 Dose: 200 mls/hr Sodium Chloride (Normal Saline) 1,000 mls @ 125 mls/hr IV ASDIRECTED [facility] Last Admin: 03/23/17 07:43 Dose: 125 mls/hr Dextrose/Sodium Chloride (Dextrose 5%-1/2 Ns) 1,000 mls @ 100 mls/hr IV ASDIRECTED [facility] Last Admin: 03/24/17 06:19 Dose: 100 mls/hr Iopamidol (Isovue-370 (76%)) 75 ml IV ONETIME ONE Stop: 03/22/17 11:38 Last Admin: 03/22/17 11:43 Dose: 50 ml *Q Meaningful Use (DIS) - VTE *Q VTE Criteria *Q: - Stroke *Q Stroke Criteria *Q: - AMI *Q AMI Criteria *Q:
[2017-03-25] MEDS: Glycerin Adult 2.1 GM Supp RECTAL SCH (08:49)
[2017-03-25 09:22] VITALS: BP 160/87
--- NOTE | 2017-03-26 10:32 | ER ---
DATE SEEN: 03/22/2017 TIME SEEN: The patient was seen at 0815 hours. HISTORY OF PRESENT ILLNESS: This 71-year-old woman comes in with a history of increased shortness of breath, occasional coughing, onset 03/18/2017 associated with low-grade temperature 100.8 yesterday, dyspnea on exertion, less than 10 steps, increased cough while lying on her back especially if she lays on her side, new onset of grunting with expiration, increased malaise, weakness, tiredness. For the past 3 to 4 days, she is lying in the bed because she is so weak. She does not use oxygen. She is a [id number] smoker, stopped many years ago. Drinks alcohol equivalent of 14 g pure alcohol (5 ounces of table wine daily). Has had pneumococcal vaccine, Prevnar 13 and flu vaccine in 2014 and 2016. The patient denies chest pain or orthopnea. She has ankylosing spondylitis and a weak neck, consequently uses her soft collar on her neck intermittently. She has noted increased weakness now with this illness and consequently has her collar on presently. PAST MEDICAL HISTORY: Diagnosis of ankylosing spondylitis. She has low body weight 43 kilos, BMI 18.5 kilos/m2. 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 ALLERGIES: None. MEDICATIONS: 1. Acetaminophen. 2. Albuterol. 3. Levothyroxine 115 mcg daily. 4. Simvastatin 40 mg at bedtime. PAST SURGICAL HISTORY: Tubal ligation, hemorrhoidectomy, laparoscopic oophorectomy, rotator cuff anchor, colonoscopy. FAMILY HISTORY: Father and mother , father of cancer of pancreas. Mother with cancer of the abdomen. Two brothers have dyslipidemia and two brothers have hypertension. Two children, . REVIEW OF SYSTEMS: HEENT: Slightly decreased hearing. CARDIOVASCULAR AND GI: Negative. No reflux. ENDOCRINE: Negative except for thyroid treated. : Denies frequency, urgency, dysuria, enuresis, or flank pain. MUSCULOSKELETAL: Neck discomfort, chronic intermittently secondary to her ankylosing spondylitis. NEUROLOGIC: Negative. HEMATOLOGIC: Negative. PSYCHIATRIC: Negative. PHYSICAL EXAMINATION: VITAL SIGNS: Blood pressure 161/96, heart rate 102, respirations 22, oxygen saturation 87, temperature is 37.7 degrees centigrade. HEENT: PERRLA intact. Pharynx without abnormality. Atraumatic. Eyes, EOMs normal. NECK: Mild kyphosis. Decreased range of motion. No tracheal deviation. CARDIOVASCULAR: Sinus tachycardia with supraventricular bigeminy, LVH, poor R-wave progression, V1 to V3, rule out old anterior myocardial infarction, age indeterminate. DIAGNOSTIC DATA: Chest x-ray, moderate chronic obstructive lung disease - emphysema with hyperaeration and infiltrate noted in the right side and left side. Right middle lobe infiltrate/left lower lobe infiltrate. LABORATORY FINDINGS: D-dimer 3880. White count 18,700, PMNs 80, lymphs 3, bandemia 5, monocytes 12, hemoglobin 12.4, platelets 291,000. Complete metabolic panel negative except for mild hypochloremia of 99, creatinine 0.5, BUN 18. BUN and creatinine ratio 36 reflecting dehydration. Glucose 144 secondary to stress, perhaps stress reaction. Alkaline phosphatase elevated 153, troponin less than 0.01. Blood cultures x2 obtained. EMERGENCY DEPARTMENT COURSE: The patient received DuoNeb and O2 support, nasal cannula 1.5 L, brought the oxygen saturation down to 92%. Because of the patient's elevated D-dimer, a CAT scan of the chest was performed. No evidence for PE, but she has bilateral pneumonia at lower bases. PLAN: 1. The patient will be admitted. She has community-acquired pneumonia. We will start Rocephin and azithromycin. 2. Enoxaparin 30 mg q.24 hours to prevent potential DVT. 3. Elevated D-dimer, etiology indeterminate. O2 support nasal cannula, q.i.d. DuoNeb. The patient admitted to Dr. Goodson's Service. Dr. Goodson has been notified. DIAGNOSES: 1. Bilateral pneumonia. 2. Asthenia - low weight. 3. Treated hypothyroidism. 4. Elevated D-dimer, etiology indeterminate, rule out vascular path, etiology indeterminate. No evidence for DVT or pulmonary embolus or aortic aneurysm. 5. 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 6. Chronic obstructive lung disease. 7. Smoker, 30-pack years. 8. Status post oophorectomy, tubal ligation, hemorrhoidectomy, and colonoscopy. 9. Class of alcohol, daily 5 ounces of wine equivalent to 14 g of alcohol daily. 10.Fibrocystic change in the breast. 11.Decreased range of motion of the neck. If experiences cardiac resuscitation, a soft collar should be placed, and she can use her soft collar as needed for neck discomfort because she has neck weakness. 12.Hypothyroidism. /[id number] SAI/SONAL
== END 2017-03-25 10:10 | disposition home or self-care (01) | DRG 194 ==
LOC: FB.ED 08:15 → FB.MS 12:35
PROVIDERS: ADMIT Family Medicine; ATTEND Family Medicine
DX: J18.9 Pneumonia, unspecified organism (principal); Z68.1 Body mass index [BMI] 19.9 or less, adult; J44.9 Chronic obstructive pulmonary disease, unspecified; M54.2 Cervicalgia; E03.9 Hypothyroidism, unspecified; Z87.891 Personal history of nicotine dependence; R53.1 Weakness; R79.1 Abnormal coagulation profile; R09.02 Hypoxemia; R06.02 Shortness of breath; R01.1 Cardiac murmur, unspecified; E78.5 Hyperlipidemia, unspecified; Z87.01 Personal history of pneumonia (recurrent); M40.209 Unspecified kyphosis, site unspecified
CPT/HCPCS: 36415; 71010; 71275; 80053; 83605; 84484; 85025; 85379; 87040 ×2; 93005; 94640; 94664; 96361; 96365; 96367; 99285; J0456; J0696; J7040; J7050 ×2; J7620; Q9967; 99283; A9270-GY; J1650

== ENCOUNTER 2017-12-27 11:39 | Inpatient (IN) | payer MEDICARE, BC ==
[2017-12-27] MEDS ORDERED: Albuterol 8 GM Inhaler INH SCH (13:30)
[2017-12-27] MEDS ORDERED: cefTRIAXone 1,000 MG in Sodium Chloride 0.9% 50 ML IV SCH (13:30)
--- NOTE | 2017-12-27 14:16 | HP ---
ADMISSION DATE: 12/27/2017 REASON FOR VISIT: Respiratory difficulty, underlying chronic lung disease. HISTORY OF PRESENT ILLNESS: Terri Obrien is a 72-year-old female, resident of [place], [place], was admitted to [facility] with complicated cough, respiratory difficulty, increasing shortness of breath, marked hypoxia, and a sense of reduced well-being. She had a chronic cough and congestion dating back to March 2017. Hospitalization at that time. Shortness of breath, dyspnea, and reduced well- being. History of ankylosing spondylitis and secondary fibrosis. Symptoms intensified. O2 sats were markedly low. Response to DuoNeb therapy was satisfactory, intervention required. MEDICATIONS: Present daily medications include; 1. Zocor 40 mg one-half tab per 20 mg one p.o. daily, hyperlipidemia. 2. Paroxetine 20 mg one p.o. daily, mood stabilizer. 3. Albuterol 2 puffs q.i.d. 4. Levothyroxine 112 mcg one p.o. daily, hypothyroidism. 5. Unisom at bedtime. ALLERGIES: No medication, environmental, or latex allergies. PAST MEDICAL HISTORY: Significant for previous tubal ligation, hemorrhoidectomy, laparoscopic oophorectomy, rotator cuff repair, and most recent colonoscopy in 2010. Chronic illnesses include pulmonary fibrosis, likely related to ankylosing spondylitis; restrictive and obstructive lung disease; previous smoking, cessation in 1991; hypothyroidism; insomnia; and hemorrhoids. SOCIAL HISTORY: A resident of [place]. Lives with her who is 71. 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 Two children, one son and one daughter, 4 grandchildren. Quit smoking in 1991. No alcohol consumption. No illicit drug use. FAMILY HISTORY: Noncontributory. REVIEW OF SYSTEMS: RESPIRATORY: Feeling poorly. EYES: Sees well. EARS: Hears well. OROPHARYNX: Intact dentition. CHEST: No cough, wheeze, or congestion. CARDIOVASCULAR: Denies chest pain, palpitations, or syncope. GI: Regular predictable stools. No blood in the stools. : Good voiding pattern. No blood in the urine. SKIN: No open sores or lesions. ENDOCRINE: No excessive thirst or urination. ALLERGIC: No chronic cough, wheeze, or congestion. PSYCHIATRIC: Mood stable. PHYSICAL EXAMINATION: VITAL SIGNS: Stable and documented. 37.7 kg, 36.8, pulse 107, 122/67, 16 is the respiration, 94 is the oximetry. GENERAL: Cooperative and conversant. Oxygen in place. HEENT: Funduscopic benign. Bright TMs. Clear nasal discharge. Mouth and oropharynx clear. Dry mucous membranes. NECK: Benign. Thyroid small. CHEST: Increased AP diameter. Prolonged expiratory phase. Coarse rhonchi at both bases. HEART: Regular without ectopy or murmur. BREASTS: Symmetric without pathologic findings. ABDOMEN: Benign surgical scars, well healed. No hepatosplenomegaly. AND RECTAL: Deferred. EXTREMITIES: Well perfused. IMAGING: Chest x-ray, per Sharda Guthrie, pending. ASSESSMENT: A 72-year-old female presents with a complicated respiratory difficulty, underlying pulmonary fibrosis, low-grade fever, and hypoxia. PLAN: Admission to the hospital is indicated, supplemental O2, aggressive RT treatments. Antibiotic therapy including azithromycin, Rocephin, and IV steroids. Complementary care and well-being. Diagnostic studies including sputum and blood cultures. Influenza testing planned. /[id number] /SONAL
[2017-12-27] MEDS: Enoxaparin 30 MG/0.3 ML Syringe SUBCUT SCH (14:29)
[2017-12-27] MEDS: cefTRIAXone 1,000 MG VIAL IV SCH (14:29)
[2017-12-27] MEDS: methylPREDNISolone Sodium Succinate 40 MG/1 ML SDV IVPUSH SCH ×2 (14:29→21:19)
[2017-12-27] MEDS: Albuterol/Ipratropium 3.0-0.5 MG/3 ML Neb Soln NEB SCH ×2 (14:59→20:48)
[2017-12-27] MEDS: Levothyroxine 112 MCG Tab PO SCH (20:48)
[2017-12-27] MEDS: PARoxetine 20 MG Tab PO SCH (20:49)
[2017-12-27] MEDS: Simvastatin 20 MG Tab PO SCH (20:49)
[2017-12-27] MEDS: Sodium Chloride 0.9% 10 ML Syringe FLUSH PRN (21:21)
[2017-12-28] MEDS: Albuterol/Ipratropium 3.0-0.5 MG/3 ML Neb Soln NEB SCH ×4 (06:10→20:57)
[2017-12-28] MEDS: methylPREDNISolone Sodium Succinate 40 MG/1 ML SDV IVPUSH SCH ×3 (06:12→21:28)
[2017-12-28] MEDS: Sodium Chloride 0.9% 10 ML Syringe FLUSH PRN ×2 (06:13→21:29)
[2017-12-28] MEDS ORDERED: Non-Formulary Medication 1 Each (Doxylamine Succinate [Unisom] 25 MG) PO SCH (09:00)
[2017-12-28] MEDS: cefTRIAXone 1,000 MG VIAL IV SCH (13:51)
[2017-12-28] MEDS: Enoxaparin 30 MG/0.3 ML Syringe SUBCUT SCH (13:51)
--- NOTE | 2017-12-28 18:41 | PN ---
DATE SEEN: 12/28/2017 SUBJECTIVE: Terri Obrien is a 72-year-old, female, admitted with acute respiratory difficulty. Suspicion for pneumonia. Response has been traumatic. O2 has been discontinued; she is comfortable; respirations are eased, followup x- ray plan today. LABORATORY STUDIES: Blood cultures negative x24 hours. CBC and electrolytes performed 12/27/2016 within normal limits. PHYSICAL EXAMINATION: VITAL SIGNS: Stable. 36.8, pulse of 102, 129/72, 21 is the respiration, 90% on room air. GENERAL: Appears comfortable. Speech is fluent. NECK: Benign. Thyroid small. CHEST: Clear in all lung torres. Decreased breath sounds in both bases. Distant heart sounds without ectopy or murmur. ABDOMEN: Benign. IMPRESSION: Pneumonia with underlying fibrosis. PLAN: Continue present therapy. Albuterol treatments, complementary care and well being, blood cultures to follow, response should be satisfactory. Chest x- ray upcoming and planned. /[id number] YUDY/SONAL
[2017-12-28] MEDS: Levothyroxine 112 MCG Tab PO SCH (20:51)
[2017-12-28] MEDS: PARoxetine 20 MG Tab PO SCH (20:52)
[2017-12-28] MEDS: Simvastatin 20 MG Tab PO SCH (20:52)
[2017-12-28] MEDS: Ibuprofen 400 MG Tab PO SCH (20:56)
[2017-12-29] MEDS: methylPREDNISolone Sodium Succinate 40 MG/1 ML SDV IVPUSH SCH (05:33)
[2017-12-29] MEDS: Sodium Chloride 0.9% 10 ML Syringe FLUSH PRN (05:34)
[2017-12-29] MEDS: Albuterol/Ipratropium 3.0-0.5 MG/3 ML Neb Soln NEB SCH ×4 (07:29→20:20)
[2017-12-29] MEDS ORDERED: Glycerin Adult 2.1 GM Supp RECTAL ONE (10:00)
[2017-12-29] MEDS: Levofloxacin 250 MG Tab PO SCH (10:48)
--- NOTE | 2017-12-29 10:48 | PN ---
DATE SEEN: 12/29/2017 SUBJECTIVE: Terri Obrien is a 72-year-old female admitted with acute pneumonia with underlying severe fibrosis. Response has been satisfactory. Oxygen demand has been diminished. Vital signs have been stable. Sputum has been moderate in nature. Microbiology, influenza A and B testing negative. Sputum culture, preliminary, no reportable process. Blood cultures negative x2. OBJECTIVE: VITAL SIGNS: 37.2, pulse 107, 128/73, respirations 20, and 95%. GENERAL: Slender, petite. NECK: Benign. Thyroid small. CHEST: Diffuse wheeze and coarse rhonchi. Distant heart sounds. ABDOMEN: Benign. IMPRESSION: Acute respiratory infection. PLAN: Requests glycerin suppository. We will make a switch from IV azithromycin, IV Rocephin to oral Levaquin. Complementary care and well being. Plan discharge home tomorrow. /[id number] /SONAL
[2017-12-29] MEDS: Enoxaparin 30 MG/0.3 ML Syringe SUBCUT SCH (13:46)
[2017-12-29] MEDS: Levothyroxine 112 MCG Tab PO SCH (20:20)
[2017-12-29] MEDS: Simvastatin 20 MG Tab PO SCH (20:20)
[2017-12-29] MEDS: Ibuprofen 400 MG Tab PO SCH (20:20)
[2017-12-29] MEDS: PARoxetine 20 MG Tab PO SCH (20:20)
[2017-12-30] MEDS: Albuterol/Ipratropium 3.0-0.5 MG/3 ML Neb Soln NEB SCH ×2 (07:17→10:46)
[2017-12-30 08:00] VITALS: BP 134/78
[2017-12-30] MEDS ORDERED: predniSONE 20 MG Tab PO SCH (08:00)
[2017-12-30] MEDS: Levofloxacin 250 MG Tab PO SCH (11:13)
--- NOTE | 2017-12-30 12:03 | CR ---
INDICATION: Follow-up pneumonia. CHEST: PA and lateral views of the chest 12/28/2017 were compared with 2016, and revealed areas of infiltration in the left mid to lower lung field and to a lesser extent on the current study, in the right lung base and mid lung field. Resolving pneumonia at the right lung base is suggested, with suggestion of new infiltrate in the left mid to lower lung field. This would raise question of a process such as aspiration pneumonia, but should be correlated clinically. There also are some heavy markings in the right upper lung field which may have been present previously and likely represent fibrosis versus minimal patchy pneumonia in that area also. The heart is normal in size and shape. The aorta is calcified in the arch area. A moderate dextroconcave scoliosis of the lower middle thoracic spine is noted, apparently compensatory to a focal scoliosis in the upper lumbar spine area. IMPRESSION: Findings are compatible with resolving pneumonia at the right lung base, but an increase in infiltrate at the left mid to lower lung field, which would be compatible with new onset pneumonia. This raises question of aspiration, but should be correlated clinically. MTDD
--- NOTE | 2017-12-31 00:49 | DISCH ---
DISCHARGE DATE: 12/30/2017 HOSPITAL COURSE: Terri Obrien is a 72-year-old female, admitted with acute respiratory distress and profound hypoxia, underlying pulmonary fibrosis. At the time of admission, she was found to be hypoxic, evidence of bilateral pneumonia, radiographic evidence of similar concerns. Started on IV Rocephin and IV azithromycin. Clinical response was satisfactory. Supplemental O2 was provided, albuterol and DuoNeb treatments were complementary. Switched from IV to oral medications, response was satisfactory. Lungs were comfortable. O2 saturations remained satisfactory and in good condition upon discharge. Short course of IV corticosteroids provided benefit. Discharged home on levofloxacin 250 mg 1 daily, 7 days duration. Followup appointment in 2 weeks with Jeannette Moreno PA-C, [place] [facility]. SURGICAL PROCEDURES: None. CONSULTATION: None. MEDICATIONS: Please see med recon list. /[id number] YUDY/SONAL
== END 2017-12-30 11:25 | disposition home or self-care (01) | DRG 195 ==
LOC: FB.MS 12:04
PROVIDERS: ADMIT Family Medicine; ATTEND Family Medicine
DX: J18.9 Pneumonia, unspecified organism (principal); J44.9 Chronic obstructive pulmonary disease, unspecified; J84.10 Pulmonary fibrosis, unspecified; Z87.891 Personal history of nicotine dependence; R09.02 Hypoxemia; E78.5 Hyperlipidemia, unspecified; E03.9 Hypothyroidism, unspecified; M45.9 Ankylosing spondylitis of unspecified sites in spine; J99 Respiratory disorders in diseases classified elsewhere
CPT/HCPCS: 36415; 71046; 80048; 85025; 87040; 87070; 87077; 87186; 87205; 87804; 93005; 94640; A9270-GY; J0456; J0696; J1650; J2920; J7050; J7620

== ENCOUNTER 2020-02-24 09:59 | Inpatient (IN) | payer MEDICARE, BC ==
--- NOTE | 2020-02-24 11:13 | CR ---
INDICATION: COPD - noisy chest. CHEST, ONE VIEW: An AP upright portable view of the chest was obtained and compared with 08/16/18 and 12/28/17. The heart did not appear enlarged. The chest is rotated to the right to a slightly greater extent than previously. Areas of patchy consolidating infiltrate are noted in the left mid lung field, extending into the lower mid lung field on the left, and minimally at the left lung base. Similar findings were also noted in the right mid lung field and the right upper lung field laterally as well as in the apical area on the left and laterally in the upper lobes bilaterally. These areas of infiltration actually appear to be slightly improved overall compared with the previous examinations, especially at the left lung base and right lung base. Findings are felt to be compatible with fibrosis or possibly chronic inflammatory disease. It is difficult to exclude superimposed acute areas of pneumonia, however. Somewhat hyperaerated appearance of the lungs is also noted suggesting COPD. IMPRESSION: 1. No definite acute process but difficult to exclude areas of patchy bronchopneumonia superimposed on the areas of infiltration bilaterally which likely are on the basis of fibrosis. 2. Probable COPD. Report was called to Dr. Mays at 1046 hours. [facility]
--- NOTE | 2020-02-24 11:22 | CT ---
INDICATION: Right leg weakness times [address] HEAD: Spiral 3.75 mm axial sections were obtained through the brain without contrast 02/24/2020 - no comparisons. Total exam DLP was 1399.62 mGy/cm Paranasal sinuses and mastoid air cells were well aerated. No cranial abnormality was seen. No shift of midline structures or ventricular abnormalities for age were seen. No evidence of bleeding site or hematoma was seen. There are calcifications noted in the internal carotid arteries. Patchy areas of decreased density are noted in the white matter bilaterally, most prominent in the right parietal lobe area - these findings most likely benign on the basis of subcortical infarcts due to microvascular disease. No definite mass lesion was identified. The orbits appear to be intact. IMPRESSION: 1. No definite acute intracranial abnormality although areas of ischemia could be present in the white matter. 2. White matter changes compatible with mild to moderate microvascular disease most prominent in the right parietal area. 3. Internal carotid artery calcifications are noted. Report was called to Dr. Mays at 1046 hours. [facility]
--- NOTE | 2020-02-24 11:48 | EDM.PDOC ---
ED HPI GENERAL MEDICAL PROBLEM - General Chief Complaint: Neuro Symptoms/Deficits Stated Complaint: POSS STROKE Time Seen by Provider: 02/24/20 10:15 Source of Information: Reports: Patient, Old Records History Limitations: Reports: No Limitations - History of Present Illness INITIAL COMMENTS - FREE TEXT/NARRATIVE: Nate comes into [facility] ED with sxs of R leg weakness since 10:30 pm yesterday evening. She sat in the chair for an hour before bedtime, but was unable to support her weight. Her carried her to bed, and then brought her to the ED this am. She does not endorse any facial, speech, or weakness in other extremities, and denies any chest pain or cough. She does have a PHM of COPD. There is detectable movement in the R leg this am on exam, but unable to bear weight.Her Head CT non contrast notes chronic small vessel disease, but no acute visible infarction, space occupying lesion0 or bleeding. - Related Data Allergies Allergy/AdvReac Type Severity Reaction Status Date / Time No Known Allergies Allergy Verified 03/22/17 08:39 Home Meds: Home Meds Albuterol [Ventolin HFA] 2 puff INH Q4HR PRN 03/22/17 [History] Levothyroxine 112 mcg PO BEDTIME 03/22/17 [History] Simvastatin 20 mg PO BEDTIME 03/22/17 [History] Doxylamine Succinate [Unisom] 25 mg PO BEDTIME 12/27/17 [History] Ibuprofen [Advil] 400 mg PO BEDTIME 12/27/17 [History] PARoxetine [Paxil] 20 mg PO BEDTIME 12/27/17 [History] Aspirin [Adult Low Dose Aspirin EC] 81 mg PO DAILY 02/24/20 [History] levoFLOXacin [Levaquin] 250 mg PO Q24H 02/24/20 [History] Past Medical History Cardiovascular History: Reports: High Cholesterol Other Cardiovascular History: has been told she has had Atrial flutter Respiratory History: Reports: Pneumonia, Recurrent, SOB, Other (See Below) Other Respiratory History: PT CURRENTLY HAS KATRIN. PNEUMONIA. 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: has had one ovary removed Musculoskeletal History: Reports: Osteoporosis Other Musculoskeletal History: ankylosing spodylosis Endocrine/Metabolic History: Reports: Hypothyroidism - Infectious Disease History Infectious Disease History: Reports: Chicken Pox - Past Surgical History HEENT Surgical History: Reports: Visual GI Surgical History: Reports: Colonoscopy, Other (See Below) Female Surgical History: Reports: Other (See Below) Musculoskeletal Surgical History: Reports: Shoulder Surgery, Other (See Below) Social & Family History - Family History Family Medical History: Noncontributory - Tobacco Use Used Tobacco, but Quit: No - Caffeine Use Caffeine Use: Reports: Coffee Caffeine Use Comment: 3 CUPS A DAY - Recreational Drug Use Recreational Drug Use: No ED ROS GENERAL - Review of Systems Review Of Systems: See Below Constitutional: Reports: Weakness (RLE) HEENT: Reports: No Symptoms Respiratory: Reports: Shortness of Breath (chronic) Cardiovascular: Reports: Dyspnea on Exertion (chronic) Endocrine: Reports: No Symptoms GI/Abdominal: Reports: No Symptoms : Reports: No Symptoms Musculoskeletal: Reports: Other (R leg weakness) Skin: Reports: No Symptoms Neurological: Reports: Difficulty Walking, Weakness (R leg) Psychiatric: Reports: No Symptoms Hematologic/Lymphatic: Reports: No Symptoms Immunologic: Reports: No Symptoms ED EXAM, NEURO - Physical Exam Exam: See Below Exam Limited By: No Limitations General Appearance: Alert, WD/WN, No Apparent Distress, Thin Eye Exam: Bilateral Eye: EOMI, Normal Inspection, PERRL Ears: Normal External Exam Nose: Normal Inspection Throat/Mouth: Normal Inspection Head Exam: Normocephalic Neck: Normal Inspection, Supple, Non-Tender Respiratory/Chest: Decreased Breath Sounds, Crackles, Wheezing Cardiovascular: No Gallop, No JVD, No Rub, Tachycardia GI/Abdominal: Normal Bowel Sounds, Soft, Non-Tender, No Organomegaly, No Mass (Female) Exam: Deferred Rectal (Female) Exam: Deferred Neurological: Alert, Normal Mood/Affect, Abnormal Gait, Difficulty Walking (R: strength is 3+/5+ knee ext, 3+/5+ knee flex; 3+/5+ foot ext and Flex;) Back Exam: Decreased Range of Motion Extremities: Other (weakness RLE) Psychiatric: Normal Affect, Normal Mood Skin Exam: Warm, Dry, Intact, Normal Color Course - Vital Signs Text/Narrative:: Terri remained stable at the ED. A L hemispheral CVA or PRIND is suspected. Screening labs noted mild elevation of WBC with L shift, in the absence of any new pulmonary sxs. The Troponin I 288.2 was also elevated, in the absence of any sxs of chest pain. She will be admitted for further evaluation and rehab. - Orders/Labs/Meds Orders: Active Orders 24 hr Category Date Time Status EKG Documentation Completion [RC] ASDIRECTED Care 02/24/20 10:19 Active URINALYSIS W/MICROSCOPIC [UA W/MICROSCOPIC] [URIN] Stat Lab 02/24/20 10:17 Ordered EKG 12 Lead [EK] Routine Ther 02/24/20 10:17 Ordered Labs: Laboratory Tests 02/24/20 02/24/20 02/24/20 Range/Units 10:20 10:20 10:20 WBC 12.4 H (4.5-12.0) X10-3/uL RBC 4.07 (3.23-5.20) x10(6)uL Hgb 12.1 (11.5-15.5) g/dL Hct 37.1 (30.0-51.3) % MCV 91.1 (80-96) fL MCH 29.8 (27.7-33.6) pg MCHC 32.7 (32.2-35.4) g/dL RDW 11.9 (11.5-15.5) % Plt Count 288 (125-369) X10(3)uL MPV 7.7 (7.4-10.4) fL Add Manual Diff Yes Neutrophils % (Manual) 94 H (46-82) % Lymphocytes % (Manual) 5 L (13-37) % Monocytes % (Manual) 1 L (4-12) % ESR 61 H (0-20) mm/hr Sodium 143 (135-145) mmol/L Potassium 3.8 (3.5-5.3) mmol/L Chloride 101 (100-110) mmol/L Carbon Dioxide 38 H (21-32) mmol/L BUN 12 (7-18) mg/dL Creatinine 0.5 L (0.55-1.02) mg/dL Est Cr Clr Drug Dosing TNP Estimated GFR (MDRD) > 60 (>60) BUN/Creatinine Ratio 24.0 H (9-20) Glucose 144 H (80-116) mg/dL Calcium 8.8 (8.6-10.2) mg/dL Total Bilirubin 0.4 (0.1-1.3) mg/dL AST 25 (5-25) IU/L ALT 20 (12-36) U/L Alkaline Phosphatase 75 (56-112) IU/L Troponin I (4.0-60.3) pg/mL Total Protein 9.1 H (6.0-8.0) g/dL Albumin 3.8 (3.2-4.6) g/dL Globulin 5.3 g/dL Albumin/Globulin Ratio 0.7 03/25/20 Range/Units 10:20 WBC (4.5-12.0) X10-3/uL RBC (3.23-5.20) x10(6)uL Hgb (11.5-15.5) g/dL Hct (30.0-51.3) % MCV (80-96) fL MCH (27.7-33.6) pg MCHC (32.2-35.4) g/dL RDW (11.5-15.5) % Plt Count (125-369) X10(3)uL MPV (7.4-10.4) fL Add Manual Diff Neutrophils % (Manual) (46-82) % Lymphocytes % (Manual) (13-37) % Monocytes % (Manual) (4-12) % ESR (0-20) mm/hr Sodium (135-145) mmol/L Potassium (3.5-5.3) mmol/L Chloride (100-110) mmol/L Carbon Dioxide (21-32) mmol/L BUN (7-18) mg/dL Creatinine (0.55-1.02) mg/dL Est Cr Clr Drug Dosing Estimated GFR (MDRD) (>60) BUN/Creatinine Ratio (9-20) Glucose (80-116) mg/dL Calcium (8.6-10.2) mg/dL Total Bilirubin (0.1-1.3) mg/dL AST (5-25) IU/L ALT (12-36) U/L Alkaline Phosphatase (56-112) IU/L Troponin I 288.2 H* (4.0-60.3) pg/mL Total Protein (6.0-8.0) g/dL Albumin (3.2-4.6) g/dL Globulin g/dL Albumin/Globulin Ratio Departure - Departure Time of Disposition: 11:00 Disposition: Admitted As Inpatient 68 Condition: Fair Clinical Impression: Cerebrovascular accident (CVA) Qualifiers: CVA mechanism: unspecified Qualified Code(s): I63.9 - Cerebral infarction, unspecified - Discharge Information *PRESCRIPTION DRUG MONITORING PROGRAM REVIEWED*: Not Applicable *COPY OF PRESCRIPTION DRUG MONITORING REPORT IN PATIENT [place]: Not Applicable Referrals: Dejuan Goodson MD [Primary Care Provider] - - Problem List & Annotations (1) Cerebrovascular accident (CVA) SNOMED Code(s): 882371245 Code(s): I63.9 - CEREBRAL INFARCTION, UNSPECIFIED Status: Acute Current Visit: Yes Annotation/Comment:: Case discussed with Dr Crowley, and patient will be admitted. Qualifiers: CVA mechanism: unspecified Qualified Code(s): I63.9 - Cerebral infarction, unspecified - Problem List Review Problem List Initiated/Reviewed/Updated: Yes - My Orders Last 24 Hours: My Active Orders 02/24/20 10:17 URINALYSIS W/MICROSCOPIC [UA W/MICROSCOPIC] [URIN] Stat EKG 12 Lead [EK] Routine 02/24/20 10:19 EKG Documentation Completion [RC] ASDIRECTED - Assessment/Plan Last 24 Hours: My Active Orders 02/24/20 10:17 URINALYSIS W/MICROSCOPIC [UA W/MICROSCOPIC] [URIN] Stat EKG 12 Lead [EK] Routine 02/24/20 10:19 EKG Documentation Completion [RC] ASDIRECTED Plan: Follow up with PCP.
--- NOTE | 2020-02-24 17:11 | PCM.HP.2 ---
H&P History of Present Illness - General Date of Service: 02/24/20 Admit Problem/Dx: Admission Diagnosis/Problem Admission Diagnosis/Problem CVA, Cerebrovascular accident Source of Information: Patient, Old Records History Limitations: Reports: No Limitations - History of Present Illness Initial Comments - Free Text/Narative: freddy is a 74-year-old female presented because of the left leg. Distal W 10:30 PM and has been on and off since. She does not have any other weakness or focal signs and recently denies speech disturbance or dysphagia. She has a history of ILD, hypertension,Anemia,Ankylosing spondylitis that a previously stable. - Related Data Allergies/Adverse Reactions: Allergies Allergy/AdvReac Type Severity Reaction Status Date / Time No Known Allergies Allergy Verified 03/22/17 08:39 Home Medications: Home Meds Albuterol [Ventolin HFA] 2 puff INH Q4HR PRN 03/22/17 [History] Levothyroxine 112 mcg PO BEDTIME 03/22/17 [History] Simvastatin 20 mg PO BEDTIME 03/22/17 [History] Doxylamine Succinate [Unisom] 25 mg PO BEDTIME 12/27/17 [History] Ibuprofen [Advil] 400 mg PO BEDTIME 12/27/17 [History] PARoxetine [Paxil] 20 mg PO BEDTIME 12/27/17 [History] Aspirin [Adult Low Dose Aspirin EC] 81 mg PO DAILY 02/24/20 [History] levoFLOXacin [Levaquin] 250 mg PO Q24H 02/24/20 [History] amLODIPine [Norvasc] 2.5 mg PO BEDTIME 02/25/20 [History] Past Medical History Cardiovascular History: Reports: High Cholesterol Other Cardiovascular History: has been told she has had Atrial flutter Respiratory History: Reports: Pneumonia, Recurrent, SOB, Other (See Below) Other Respiratory History: PT CURRENTLY HAS KATRIN. PNEUMONIA. Gastrointestinal History: Reports: Hemorrhoids RN ADMIT History: Reports: Other OB/BYN History: has had one ovary removed Musculoskeletal History: Reports: Osteoporosis Other Musculoskeletal History: ankylosing spodylosis Endocrine/Metabolic History: Reports: Hypothyroidism - Infectious Disease History Infectious Disease History: Reports: Chicken Pox - Past Surgical History HEENT Surgical History: Reports: Visual GI Surgical History: Reports: Colonoscopy, Other (See Below) Female Surgical History: Reports: Other (See Below) Musculoskeletal Surgical History: Reports: Shoulder Surgery, Other (See Below) Social & Family History - Family History Family Medical History: Noncontributory - Tobacco Use Smoking Status *Q: Never Smoker Used Tobacco, but Quit: No Second Hand Smoke Exposure: No - Caffeine Use Caffeine Use: Reports: Coffee Caffeine Use Comment: drinks coffee once a day - Recreational Drug Use Recreational Drug Use: No H&P Review of Systems - Review of Systems: Review Of Systems: Comprehensive ROS is negative, except as noted in HPI. Exam - Exam Exam: See Below - Vital Signs Vital Signs: Last Vital Signs Temp 98.0 F 02/24/20 16:02 Pulse 99 02/24/20 16:02 Resp 20 02/24/20 16:02 BP 128/74 02/24/20 16:02 Pulse Ox 97 02/24/20 16:02 Weight: 37.376 kg - Exam Quality Assessment: Supplemental Oxygen General: Alert, Oriented, 4 HEENT: PERRLA, Hearing Intact, Mucosa Moist & Pearl, Nares Patent, Normal Nasal Septum, Posterior Pharynx Clear, Conjunctiva Clear, EOMI, EACs Clear, TMs Clear Neck: Supple, Trachea Midline, 2 Lungs: Decreased Breath Sounds Cardiovascular: Regular Rate, Systolic Murmur GI/Abdominal Exam: Normal Bowel Sounds, Soft, Non-Tender, No Organomegaly, No Distention, No Abnormal Bruit, No Mass, Pelvis Stable (Female) Exam: Deferred Rectal (Female) Exam: Deferred Back Exam: Normal Inspection, Full Range of Motion, NT Extremities: Normal Inspection, Normal Range of Motion, Non-Tender, No Pedal Edema, Normal Capillary Refill Skin: Warm, Dry, Intact Neurological: Cranial Nerves Intact, Reflexes Equal Bilateral Neuro Extensive - Mental Status: Alert, Oriented x3, Normal Mood/Affect, Normal Cognition Neuro Extensive - Motor, Sensory, Reflexes: CN II-XII Intact, Normal Gait, Normal Reflexes Psychiatric: Alert, Normal Affect, Normal Mood - Patient Data Lab Results Last 24 hrs: Laboratory Results - last 24 hr 02/24/20 02/24/20 02/24/20 Range/Units 10:20 10:20 10:20 WBC 12.4 H (4.5-12.0) X10-3/uL RBC 4.07 (3.23-5.20) x10(6)uL Hgb 12.1 (11.5-15.5) g/dL Hct 37.1 (30.0-51.3) % MCV 91.1 (80-96) fL MCH 29.8 (27.7-33.6) pg MCHC 32.7 (32.2-35.4) g/dL RDW 11.9 (11.5-15.5) % Plt Count 288 (125-369) X10(3)uL MPV 7.7 (7.4-10.4) fL Add Manual Diff Yes Neutrophils % (Manual) 94 H (46-82) % Lymphocytes % (Manual) 5 L (13-37) % Monocytes % (Manual) 1 L (4-12) % ESR 61 H (0-20) mm/hr Sodium 143 (135-145) mmol/L Potassium 3.8 (3.5-5.3) mmol/L Chloride 101 (100-110) mmol/L Carbon Dioxide 38 H (21-32) mmol/L BUN 12 (7-18) mg/dL Creatinine 0.5 L (0.55-1.02) mg/dL Est Cr Clr Drug Dosing TNP Estimated GFR (MDRD) > 60 (>60) BUN/Creatinine Ratio 24.0 H (9-20) Glucose 144 H (80-116) mg/dL Calcium 8.8 (8.6-10.2) mg/dL Total Bilirubin 0.4 (0.1-1.3) mg/dL AST 25 (5-25) IU/L ALT 20 (12-36) U/L Alkaline Phosphatase 75 (56-112) IU/L Troponin I (4.0-60.3) pg/mL NT-Pro-B Natriuret Pep (<=125) pg/mL Total Protein 9.1 H (6.0-8.0) g/dL Albumin 3.8 (3.2-4.6) g/dL Globulin 5.3 g/dL Albumin/Globulin Ratio 0.7 Urine Color (YELLOW) Urine Appearance (CLEAR) Urine pH (5.0-6.5) Ur Specific [place] (1.010-1.025) Urine Protein (NEGATIVE) mg/dL Urine Glucose (UA) (NORMAL) mg/dL Urine Ketones (NEGATIVE) mg/dL Urine Occult Blood (NEGATIVE) Urine Nitrite (NEGATIVE) Urine Bilirubin (NEGATIVE) Urine Urobilinogen (NEGATIVE) mg/dL Ur Leukocyte Esterase (NEGATIVE) Urine WBC (0-5) Ur Squamous Epith Cells (NS,R,O) Urine Bacteria (NS) 02/24/20 02/24/20 02/24/20 Range/Units 10:20 12:15 13:53 WBC (4.5-12.0) X10-3/uL RBC (3.23-5.20) x10(6)uL Hgb (11.5-15.5) g/dL Hct (30.0-51.3) % MCV (80-96) fL MCH (27.7-33.6) pg MCHC (32.2-35.4) g/dL RDW (11.5-15.5) % Plt Count (125-369) X10(3)uL MPV (7.4-10.4) fL Add Manual Diff Neutrophils % (Manual) (46-82) % Lymphocytes % (Manual) (13-37) % Monocytes % (Manual) (4-12) % ESR (0-20) mm/hr Sodium (135-145) mmol/L Potassium (3.5-5.3) mmol/L Chloride (100-110) mmol/L Carbon Dioxide (21-32) mmol/L BUN (7-18) mg/dL Creatinine (0.55-1.02) mg/dL Est Cr Clr Drug Dosing Estimated GFR (MDRD) (>60) BUN/Creatinine Ratio (9-20) Glucose (80-116) mg/dL Calcium (8.6-10.2) mg/dL Total Bilirubin (0.1-1.3) mg/dL AST (5-25) IU/L ALT (12-36) U/L Alkaline Phosphatase (56-112) IU/L Troponin I 288.2 H* 316.2 H* (4.0-60.3) pg/mL NT-Pro-B Natriuret Pep 483 H (<=125) pg/mL Total Protein (6.0-8.0) g/dL Albumin (3.2-4.6) g/dL Globulin g/dL Albumin/Globulin Ratio Urine Color Yellow (YELLOW) Urine Appearance Slightly cloudy (CLEAR) Urine pH 8.0 H (5.0-6.5) Ur Specific [place] 1.005 L (1.010-1.025) Urine Protein Negative (NEGATIVE) mg/dL Urine Glucose (UA) Normal (NORMAL) mg/dL Urine Ketones Negative (NEGATIVE) mg/dL Urine Occult Blood Negative (NEGATIVE) Urine Nitrite Negative (NEGATIVE) Urine Bilirubin Negative (NEGATIVE) Urine Urobilinogen Normal (NEGATIVE) mg/dL Ur Leukocyte Esterase Negative (NEGATIVE) Urine WBC 0-5 (0-5) Ur Squamous Epith Cells Few H (NS,R,O) Urine Bacteria Few H (NS) Result Diagrams: 02/25/20 06:33 02/25/20 06:33 EKG INTERPRETATION Rhythm: NSR Sepsis Event Note - Evaluation Sepsis Screening Result: No Definite Risk - Focused Exam Vital Signs: Vital Signs Temp Pulse Resp BP Pulse Ox 02/24/20 16:02 98.0 F 99 20 128/74 97 02/24/20 12:02 98.6 F 96 18 130/79 100 Date Exam was Performed: 02/25/20 Time Exam was Performed: 09:06 - Problem List (1) Limb weakness SNOMED Code(s): 128707347 ICD Code: R29.898 - OT SYMPTOMS AND SIGNS INVOLVING THE MUSCULOSKELETAL SYSTEM Status: Acute Current Visit: Yes (2) ILD (interstitial lung disease) SNOMED Code(s): 152975060 ICD Code: J84.9 - INTERSTITIAL PULMONARY DISEASE, UNSPECIFIED Status: Acute Current Visit: Yes (3) Ankylosing spondylitis SNOMED Code(s): 5474073 ICD Code: M45.9 - ANKYLOSING SPONDYLITIS OF UNSPECIFIED SITES IN SPINE Status: Acute Current Visit: Yes Qualifiers: Ankylosing spondylitis location: multiple sites in spine Qualified Code(s) : M45.0 - Ankylosing spondylitis of multiple sites in spine (4) HTN (hypertension) SNOMED Code(s): 49038662 ICD Code: I10 - ESSENTIAL (PRIMARY) HYPERTENSION Status: Acute Current Visit: Yes (5) Insomnia SNOMED Code(s): 084365784 ICD Code: G47.00 - INSOMNIA, UNSPECIFIED Status: Acute Current Visit: Yes (6) Systolic murmur SNOMED Code(s): 30853489 ICD Code: R01.1 - CARDIAC MURMUR, UNSPECIFIED Status: Acute Current Visit : No (7) HLD (hyperlipidemia) SNOMED Code(s): 39983250 ICD Code: E78.5 - HYPERLIPIDEMIA, UNSPECIFIED Status: Acute Current Visit : Yes (8) Elevated troponin SNOMED Code(s): 860855442, 672398040, 193957651 ICD Code: R79.89 - OTHER SPECIFIED ABNORMAL FINDINGS OF BLOOD CHEMISTRY Status: Acute Current Visit: Yes (9) Unknown when suspected stroke patient was last well SNOMED Code(s): 795883700, 421053154 ICD Code: R09.89 - OTH SYMPTOMS AND SIGNS INVOLVING THE CIRC AND RESP SYSTEMS Status: Acute Current Visit: Yes Problem List Initiated/Reviewed/Updated: Yes Orders Last 24hrs: Active Orders 24 hr Category Date Time Status Patient Status [ADT] Routine ADT 02/24/20 12:02 Active Antiembolic Devices [RC] .Routine Care 02/24/20 12:04 Active Bedrest Bedside Commode [RC] ASDIRECTED Care 02/24/20 12:02 Active EKG Documentation Completion [RC] ASDIRECTED Care 02/24/20 10:19 Active Height and Weight [RC] UPON Care 02/24/20 12:02 Active Intake and Output [RC] ASDIRECTED Care 02/24/20 12:02 Active Pulse Oximetry [RC] PRN Care 02/24/20 12:02 Active VTE/DVT Education [RC] Click to Edit Care 02/24/20 12:04 Active Vital Signs [RC] Q4H Care 02/24/20 12:02 Active 2 Gram Sodium Diet [DIET] Diet 02/24/20 Lunch Ordered DVT/VTE Prophylaxis Reflex [OM.PC] Per Unit Routine Oth 02/24/20 12:02 Ordered Resuscitation Status Routine Resus Stat 02/24/20 12:02 Ordered EKG 12 Lead [EK] Routine Ther 02/24/20 10:17 Ordered Assessment/Plan Comment:: Obtain an MRI.Repeat Trop and EKG in AM. She is pain free. Consult PT.
[2020-02-24] MEDS: Aspirin 81 MG Tab.EC PO SCH (17:35)
[2020-02-24] MEDS: Doxylamine Succinate 25 MG Tab PO SCH (20:49)
[2020-02-24] MEDS: PARoxetine 20 MG Tab PO SCH (20:49)
[2020-02-24] MEDS: Levothyroxine 112 MCG Tab PO SCH (20:49)
[2020-02-24] MEDS ORDERED: Ibuprofen 200 MG Tab PO SCH (21:00)
[2020-02-24] MEDS ORDERED: Simvastatin 40 MG Tab PO SCH (21:00)
--- NOTE | 2020-02-25 09:24 | PCM.PN ---
- General Info Date of Service: 02/25/20 Subjective Update: Endorses difficulty in swallowing.Leg paralysis comes and goes. Functional Status: Reports: Pain Controlled - Review of Systems General: Reports: No Symptoms HEENT: Reports: No Symptoms Pulmonary: Reports: No Symptoms Gastrointestinal: Denies: Abdominal Pain, Constipation, Decreased Appetite, Vomiting Genitourinary: Denies: No Symptoms Musculoskeletal: Reports: No Symptoms - Patient Data Vitals - Most Recent: Last Vital Signs Temp 97.5 F 02/25/20 05:00 Pulse 80 02/25/20 05:00 Resp 18 02/25/20 05:00 BP 142/78 H 02/25/20 05:00 Pulse Ox 98 02/25/20 05:00 Weight - Most Recent: 37.376 kg I&O - Last 24 Hours: Intake & Output 02/24/20 02/25/20 02/25/20 22:59 06:59 14:59 Intake Total 200 Output Total 400 Balance -200 Lab Results Last 24 Hours: Laboratory Results - last 24 hr 02/24/20 02/24/20 02/24/20 Range/Units 10:20 10:20 10:20 WBC 12.4 H (4.5-12.0) X10-3/uL RBC 4.07 (3.23-5.20) x10(6)uL Hgb 12.1 (11.5-15.5) g/dL Hct 37.1 (30.0-51.3) % MCV 91.1 (80-96) fL MCH 29.8 (27.7-33.6) pg MCHC 32.7 (32.2-35.4) g/dL RDW 11.9 (11.5-15.5) % Plt Count 288 (125-369) X10(3)uL MPV 7.7 (7.4-10.4) fL Neut % (Auto) (46-82) % Lymph % (Auto) (13-37) % [place] % (Auto) (4-12) % Eos % (Auto) (1.0-5.0) % Baso % (Auto) (0-2) % Neut # (Auto) (1.6-8.3) # Lymph # (Auto) (0.6-5.0) # [place] # (Auto) (0.0-1.3) # Eos # (Auto) (0.0-0.8) # Baso # (Auto) (0.0-0.2) # Add Manual Diff Yes Neutrophils % (Manual) 94 H (46-82) % Lymphocytes % (Manual) 5 L (13-37) % Monocytes % (Manual) 1 L (4-12) % ESR 61 H (0-20) mm/hr Sodium 143 (135-145) mmol/L Potassium 3.8 (3.5-5.3) mmol/L Chloride 101 (100-110) mmol/L Carbon Dioxide 38 H (21-32) mmol/L BUN 12 (7-18) mg/dL Creatinine 0.5 L (0.55-1.02) mg/dL Est Cr Clr Drug Dosing TNP Estimated GFR (MDRD) > 60 (>60) BUN/Creatinine Ratio 24.0 H (9-20) Glucose 144 H (80-116) mg/dL Calcium 8.8 (8.6-10.2) mg/dL Total Bilirubin 0.4 (0.1-1.3) mg/dL AST 25 (5-25) IU/L ALT 20 (12-36) U/L Alkaline Phosphatase 75 (56-112) IU/L Troponin I (4.0-60.3) pg/mL NT-Pro-B Natriuret Pep (<=125) pg/mL Total Protein 9.1 H (6.0-8.0) g/dL Albumin 3.8 (3.2-4.6) g/dL Globulin 5.3 g/dL Albumin/Globulin Ratio 0.7 Urine Color (YELLOW) Urine Appearance (CLEAR) Urine pH (5.0-6.5) Ur Specific [place] (1.010-1.025) Urine Protein (NEGATIVE) mg/dL Urine Glucose (UA) (NORMAL) mg/dL Urine Ketones (NEGATIVE) mg/dL Urine Occult Blood (NEGATIVE) Urine Nitrite (NEGATIVE) Urine Bilirubin (NEGATIVE) Urine Urobilinogen (NEGATIVE) mg/dL Ur Leukocyte Esterase (NEGATIVE) Urine WBC (0-5) Ur Squamous Epith Cells (NS,R,O) Urine Bacteria (NS) 02/24/20 02/24/20 02/24/20 Range/Units 10:20 12:15 13:53 WBC (4.5-12.0) X10-3/uL RBC (3.23-5.20) x10(6)uL Hgb (11.5-15.5) g/dL Hct (30.0-51.3) % MCV (80-96) fL MCH (27.7-33.6) pg MCHC (32.2-35.4) g/dL RDW (11.5-15.5) % Plt Count (125-369) X10(3)uL MPV (7.4-10.4) fL Neut % (Auto) (46-82) % Lymph % (Auto) (13-37) % [place] % (Auto) (4-12) % Eos % (Auto) (1.0-5.0) % Baso % (Auto) (0-2) % Neut # (Auto) (1.6-8.3) # Lymph # (Auto) (0.6-5.0) # [place] # (Auto) (0.0-1.3) # Eos # (Auto) (0.0-0.8) # Baso # (Auto) (0.0-0.2) # Add Manual Diff Neutrophils % (Manual) (46-82) % Lymphocytes % (Manual) (13-37) % Monocytes % (Manual) (4-12) % ESR (0-20) mm/hr Sodium (135-145) mmol/L Potassium (3.5-5.3) mmol/L Chloride (100-110) mmol/L Carbon Dioxide (21-32) mmol/L BUN (7-18) mg/dL Creatinine (0.55-1.02) mg/dL Est Cr Clr Drug Dosing Estimated GFR (MDRD) (>60) BUN/Creatinine Ratio (9-20) Glucose (80-116) mg/dL Calcium (8.6-10.2) mg/dL Total Bilirubin (0.1-1.3) mg/dL AST (5-25) IU/L ALT (12-36) U/L Alkaline Phosphatase (56-112) IU/L Troponin I 288.2 H* 316.2 H* (4.0-60.3) pg/mL NT-Pro-B Natriuret Pep 483 H (<=125) pg/mL Total Protein (6.0-8.0) g/dL Albumin (3.2-4.6) g/dL Globulin g/dL Albumin/Globulin Ratio Urine Color Yellow (YELLOW) Urine Appearance Slightly cloudy (CLEAR) Urine pH 8.0 H (5.0-6.5) Ur Specific [place] 1.005 L (1.010-1.025) Urine Protein Negative (NEGATIVE) mg/dL Urine Glucose (UA) Normal (NORMAL) mg/dL Urine Ketones Negative (NEGATIVE) mg/dL Urine Occult Blood Negative (NEGATIVE) Urine Nitrite Negative (NEGATIVE) Urine Bilirubin Negative (NEGATIVE) Urine Urobilinogen Normal (NEGATIVE) mg/dL Ur Leukocyte Esterase Negative (NEGATIVE) Urine WBC 0-5 (0-5) Ur Squamous Epith Cells Few H (NS,R,O) Urine Bacteria Few H (NS) 02/25/20 02/25/20 02/25/20 Range/Units 06:33 06:33 06:33 WBC 9.4 (4.5-12.0) X10-3/uL RBC 3.63 (3.23-5.20) x10(6)uL Hgb 11.0 L (11.5-15.5) g/dL Hct 33.4 (30.0-51.3) % MCV 92.1 (80-96) fL MCH 30.4 (27.7-33.6) pg MCHC 33.0 (32.2-35.4) g/dL RDW 12.4 (11.5-15.5) % Plt Count 246 (125-369) X10(3)uL MPV 7.9 (7.4-10.4) fL Neut % (Auto) 79.9 (46-82) % Lymph % (Auto) 6.9 L (13-37) % [place] % (Auto) 9.2 (4-12) % Eos % (Auto) 0 L (1.0-5.0) % Baso % (Auto) 4 H (0-2) % Neut # (Auto) 7.5 (1.6-8.3) # Lymph # (Auto) 0.6 (0.6-5.0) # [place] # (Auto) 0.9 (0.0-1.3) # Eos # (Auto) 0.0 (0.0-0.8) # Baso # (Auto) 0.4 H (0.0-0.2) # Add Manual Diff Neutrophils % (Manual) (46-82) % Lymphocytes % (Manual) (13-37) % Monocytes % (Manual) (4-12) % ESR (0-20) mm/hr Sodium 146 H (135-145) mmol/L Potassium 4.0 (3.5-5.3) mmol/L Chloride 103 (100-110) mmol/L Carbon Dioxide 42 H* (21-32) mmol/L BUN 17 (7-18) mg/dL Creatinine 0.5 L (0.55-1.02) mg/dL Est Cr Clr Drug Dosing 60.01 Estimated GFR (MDRD) > 60 (>60) BUN/Creatinine Ratio 34.0 H (9-20) Glucose 109 (80-116) mg/dL Calcium 8.3 L (8.6-10.2) mg/dL Total Bilirubin (0.1-1.3) mg/dL AST (5-25) IU/L ALT (12-36) U/L Alkaline Phosphatase (56-112) IU/L Troponin I 263.0 H* (4.0-60.3) pg/mL NT-Pro-B Natriuret Pep (<=125) pg/mL Total Protein (6.0-8.0) g/dL Albumin (3.2-4.6) g/dL Globulin g/dL Albumin/Globulin Ratio Urine Color (YELLOW) Urine Appearance (CLEAR) Urine pH (5.0-6.5) Ur Specific [place] (1.010-1.025) Urine Protein (NEGATIVE) mg/dL Urine Glucose (UA) (NORMAL) mg/dL Urine Ketones (NEGATIVE) mg/dL Urine Occult Blood (NEGATIVE) Urine Nitrite (NEGATIVE) Urine Bilirubin (NEGATIVE) Urine Urobilinogen (NEGATIVE) mg/dL Ur Leukocyte Esterase (NEGATIVE) Urine WBC (0-5) Ur Squamous Epith Cells (NS,R,O) Urine Bacteria (NS) Med Orders - Current: Current Medications Amlodipine Besylate (Norvasc) 2.5 mg PO BEDTIME [facility] Aspirin (Halfprin) 81 mg PO DAILY RADHA Last Admin: 02/24/20 17:35 Dose: 81 mg Doxylamine Succinate (Unisom Sleep Aid) 25 mg PO BEDTIME RADHA Last Admin: 02/24/20 20:49 Dose: 25 mg Ibuprofen (Motrin) 400 mg PO BEDTIME RADHA Levothyroxine Sodium (Levothyroxine) 112 mcg PO BEDTIME RADHA Last Admin: 02/24/20 20:49 Dose: 112 mcg Paroxetine HCl (Paxil) 20 mg PO BEDTIME RADHA Last Admin: 02/24/20 20:49 Dose: 20 mg Simvastatin (Zocor) 20 mg PO BEDTIME [facility] Sodium Chloride (Saline Flush) 10 ml FLUSH ASDIRECTED PRN PRN Reason: Keep Vein Open Discontinued Medications Ibuprofen (Motrin) 400 mg PO BEDTIME [facility] Last Admin: 02/24/20 20:48 Dose: 400 mg Simvastatin (Zocor) 20 mg PO BEDTIME [facility] Last Admin: 02/24/20 20:49 Dose: 20 mg - Exam Quality Assessment: Supplemental Oxygen General: Alert Neck: Supple Lungs: Decreased Breath Sounds Cardiovascular: Murmurs GI/Abdominal Exam: Normal Bowel Sounds Extremities: Normal Inspection Neurological: No New Focal Deficit Psy/Mental Status: Alert EKG INTERPRETATION Rhythm: NSR Sepsis Event Note - Evaluation Sepsis Screening Result: No Definite Risk - Focused Exam Vital Signs: Vital Signs Temp Pulse Resp BP Pulse Ox 02/25/20 05:00 97.5 F 80 18 142/78 H 98 Date Exam was Performed: 02/25/20 Time Exam was Performed: 09:19 - Problem List & Annotations (1) Limb weakness SNOMED Code(s): 891506321 Code(s): R29.898 - OTH SYMPTOMS AND SIGNS INVOLVING THE MUSCULOSKELETAL SYSTEM Status: Acute Current Visit: Yes (2) ILD (interstitial lung disease) SNOMED Code(s): 643796168 Code(s): J84.9 - INTERSTITIAL PULMONARY DISEASE, UNSPECIFIED Status: Acute Current Visit: Yes (3) Ankylosing spondylitis SNOMED Code(s): 2870838 Code(s): M45.9 - ANKYLOSING SPONDYLITIS OF UNSPECIFIED SITES IN SPINE Status: Acute Current Visit: Yes Qualifiers: Ankylosing spondylitis location: multiple sites in spine Qualified Code(s) : M45.0 - Ankylosing spondylitis of multiple sites in spine (4) HTN (hypertension) SNOMED Code(s): 39114199 Code(s): I10 - ESSENTIAL (PRIMARY) HYPERTENSION Status: Acute Current Visit: Yes (5) Insomnia SNOMED Code(s): 595864069 Code(s): G47.00 - INSOMNIA, UNSPECIFIED Status: Acute Current Visit: Yes (6) Systolic murmur SNOMED Code(s): 70146811 Code(s): R01.1 - CARDIAC MURMUR, UNSPECIFIED Status: Acute Current Visit : No (7) HLD (hyperlipidemia) SNOMED Code(s): 61398159 Code(s): E78.5 - HYPERLIPIDEMIA, UNSPECIFIED Status: Acute Current Visit : Yes (8) Elevated troponin SNOMED Code(s): 579813233, 241433319, 421657453 Code(s): R79.89 - OTHER SPECIFIED ABNORMAL FINDINGS OF BLOOD CHEMISTRY Status: Acute Current Visit: Yes (9) Unknown when suspected stroke patient was last well SNOMED Code(s): 466059439, 490147617 Code(s): R09.89 - OTH SYMPTOMS AND SIGNS INVOLVING THE CIRC AND RESP SYSTEMS Status: Acute Current Visit: Yes - Problem List Review Problem List Initiated/Reviewed/Updated: Yes - My Orders Last 24 Hours: My Active Orders 02/24/20 17:11 OT Evaluation and Treatment [CONS] Routine PT Evaluation and Treatment [CONS] Routine 02/24/20 17:15 Aspirin [Halfprin] 81 mg PO DAILY 02/24/20 18:31 Sodium Chloride 0.9% [Saline Flush] 10 ml FLUSH ASDIRECTED PRN Saline Lock Insert [OM.PC] Routine 02/24/20 21:00 Doxylamine Succinate [Unisom Sleep Aid] 25 mg PO BEDTIME Levothyroxine 112 mcg PO BEDTIME PARoxetine [Paxil] 20 mg PO BEDTIME 02/25/20 00:44 Oxygen Therapy [RC] ASDIRECTED 02/25/20 08:30 Brain wo Cont [MR] Routine 02/25/20 09:10 Nursing Bedside Swallow Screen [RC] ASDIRECTED 02/25/20 21:00 Ibuprofen [Motrin] 400 mg PO BEDTIME Simvastatin [Zocor] 20 mg PO BEDTIME amLODIPine [Norvasc] 2.5 mg PO BEDTIME 02/25/20 Lunch Mechanical Soft Diet [DIET] 02/26/20 05:11 CBC WITH AUTO DIFF [HEME] AM COMPREHENSIVE METABOLIC PN,CMP [CHEM] AM TROPONIN I [CHEM] AM - Plan Plan:: Obtain an MRI.Repeat Trop and EKG in AM. She is pain free. Consult PT.Change to mechanical soft,screen bedside,swallow evaluation.
[2020-02-25] MEDS: Aspirin 81 MG Tab.EC PO SCH (10:30)
[2020-02-25] MEDS: Acetaminophen 325 MG Tab PO PRN (17:07)
[2020-02-25] MEDS: Doxylamine Succinate 25 MG Tab PO SCH (20:45)
[2020-02-25] MEDS: PARoxetine 20 MG Tab PO SCH (20:45)
[2020-02-25] MEDS: Levothyroxine 112 MCG Tab PO SCH (20:45)
[2020-02-25] MEDS: amLODIPine 2.5 MG Tab PO SCH (20:46)
[2020-02-25] MEDS: Simvastatin 20 MG Tab PO SCH (20:46)
[2020-02-25] MEDS ORDERED: Ibuprofen 400 MG Tab PO SCH (21:00)
[2020-02-26] MEDS: Aspirin 81 MG Tab.EC PO SCH (09:35)
[2020-02-26] MEDS: Bisacodyl 10 MG Supp RECTAL PRN (11:14)
--- NOTE | 2020-02-26 11:40 | PN ---
DATE SEEN: 02/26/2020 SUBJECTIVE: Terri Obrien is a 74-year-old female admitted on 02/24/2020, who presented with acute right leg weakness, began about 10:30 the day prior to admission. Sat up in a bed for an hour, went off the bed, unable to bear weight. Has been carried to the bed, brought to the emergency room on the morning of 02/23. CT scan revealed no pathological findings. MRI revealed an evolving CVA in the left parietal and left occipital region. Stroke in evolution. Other interventions under review. Some better. Weakness in the right leg continues to be problematic, right upper arm better, some feeding difficulties. Known COPD, oxygen dependent, CPAP on board. Has been uneventful since her hospital stay. LABORATORY STUDIES: Of significance, today white count 7100, hemoglobin 11.9, normal indices. Electrolytes satisfactory. GFR greater than 60. Troponins have gone from 288 to 316 to 263 to 150. Echo to be considered during her hospital stay. Urinalysis unremarkable. OBJECTIVE: VITAL SIGNS: 37.1, pulse 116, 130/77, 94% on 4 L. GENERAL: Cachetic frail looking female. Speech was weak, but appropriate. NECK: Benign. Thyroid small. No carotid bruits. CHEST: Clear in all lung torres, though increased AP diameter. Prolonged expiratory phase. HEART: Distant heart sounds. Occasional ectopy 110. ABDOMEN: Benign. ASSESSMENT: Cerebrovascular accident with right hemiparesis lower extremity more than upper extremity, chronic obstructive pulmonary disease, possible cardiac event. PLAN: We will obtain carotid ultrasound. We will do echocardiogram when appropriate. Intervention and care as appropriate. /[id number] 1108 1134 /SONAL
[2020-02-26] MEDS ORDERED: Metoprolol Succinate 25 MG Tab.ER PO SCH (11:45)
[2020-02-26] MEDS: Clopidogrel 75 MG Tab PO SCH (14:19)
[2020-02-26] MEDS: Sodium Chloride 0.9% 10 ML Syringe FLUSH PRN ×2 (15:52→20:26)
[2020-02-26] MEDS: Doxylamine Succinate 25 MG Tab PO SCH (20:57)
[2020-02-26] MEDS: Simvastatin 20 MG Tab PO SCH (20:57)
[2020-02-26] MEDS: Levothyroxine 112 MCG Tab PO SCH (20:57)
[2020-02-26] MEDS: amLODIPine 2.5 MG Tab PO SCH (20:57)
[2020-02-26] MEDS: PARoxetine 20 MG Tab PO SCH (20:57)
[2020-02-27] MEDS: Metoprolol Succinate 25 MG Tab.ER PO SCH (08:26)
[2020-02-27] MEDS: Clopidogrel 75 MG Tab PO SCH (08:27)
[2020-02-27] MEDS: Aspirin 325 MG Tab.EC PO SCH (08:27)
--- NOTE | 2020-02-27 14:23 | PN ---
DATE SEEN: 02/27/2020 SUBJECTIVE: Terri Obrien is a 74-year-old female, admitted with an acute stroke. MRI proven left brain CVA with resultant hemiparesis. Right arm pretty much back to normal. Right leg moving with greater success. Presently on Plavix and aspirin. Carotid Doppler delayed. MRI noted. DIAGNOSTIC STUDIES: No recent laboratory studies. White count yesterday at 7100, hemoglobin 11.9, and normal indices. Electrolytes satisfactory. GFR greater than 60. Mildly elevated troponin but scaling down 288, 316, 263, and 150. In good spirits. Markedly poor vision and poor hearing. OBJECTIVE: VITAL SIGNS: 37 degrees, 85, 103/62, 14, and 98% on 3 L. GENERAL: In good spirits. HEENT: Markedly decreased hearing and vision. NECK: Benign. No JVD. CHEST: Clear in all lung torres. No adventitious sounds. Decreased breath sounds at both bases though. HEART: Distant heart sounds. No ectopy or significant murmur. ABDOMEN: Benign. EXTREMITIES: Right arm about 90%, left arm about 20%. ASSESSMENT: Cerebrovascular accident with right hemiparesis, lower extremity greater than upper extremity. PLAN: Continue PT/OT, medications on board, Plavix and aspirin, carotid Doppler, and echo to be performed this upcoming week. /[id number] 1414 /SONAL
[2020-02-27] MEDS: Doxylamine Succinate 25 MG Tab PO SCH (20:24)
[2020-02-27] MEDS: Simvastatin 20 MG Tab PO SCH (20:24)
[2020-02-27] MEDS: Levothyroxine 112 MCG Tab PO SCH (20:24)
[2020-02-27] MEDS: PARoxetine 20 MG Tab PO SCH (20:24)
[2020-02-27] MEDS: amLODIPine 2.5 MG Tab PO SCH (21:55)
[2020-02-28] MEDS: Metoprolol Succinate 25 MG Tab.ER PO SCH (08:12)
[2020-02-28] MEDS: Aspirin 325 MG Tab.EC PO SCH (08:12)
[2020-02-28] MEDS: Clopidogrel 75 MG Tab PO SCH (08:12)
[2020-02-28] MEDS: Bisacodyl 10 MG Supp RECTAL PRN (08:55)
--- NOTE | 2020-02-28 11:32 | PN ---
DATE SEEN: 02/28/2020 SUBJECTIVE: Terri Obrien is a 74-year-old female, presented with acute CVA with right upper motor weakness, right lower extremity motor weakness, and MRI-proven stroke in progress. Has some increasingly spontaneous movement yesterday but much better improvement in evening and today. She is actually up walking. Not fully in command but stable. Vision which has been blurry, not focal or any homonymous, but general vision had improved. Feeling much better. Anxious to continue to get better. Laboratory studies to be performed today, CBC panel and TSH, on thyroid therapy. Medications reviewed and appropriate. New results, none. OBJECTIVE: VITAL SIGNS: 36.6, 112/66, 15, and 99 on 2 L. GENERAL: Appears comfortable. She is a very frail looking lady. NECK: Benign. Thyroid small. No carotid bruits. CHEST: Clear in all lung torres. HEART: No ectopy or murmur. ABDOMEN: Benign. ASSESSMENT: Cerebrovascular accident with improving hemiparesis. PLAN: Continue Plavix and aspirin. We will check laboratory studies. PT/OT actively involved. /[id number] 1123 /SONAL
[2020-02-28] MEDS: Levothyroxine 112 MCG Tab PO SCH (21:19)
[2020-02-28] MEDS: Simvastatin 20 MG Tab PO SCH (21:20)
[2020-02-28] MEDS: Doxylamine Succinate 25 MG Tab PO SCH (21:20)
[2020-02-28] MEDS: PARoxetine 20 MG Tab PO SCH (21:20)
[2020-02-28] MEDS: amLODIPine 2.5 MG Tab PO SCH (21:26)
[2020-02-28] MEDS: Acetaminophen 325 MG Tab PO PRN (21:35)
[2020-02-29] MEDS ORDERED: hydrOXYzine HCl 25 MG Tab PO PRN (01:51)
[2020-02-29] MEDS: Metoprolol Succinate 25 MG Tab.ER PO SCH (08:51)
[2020-02-29] MEDS: Clopidogrel 75 MG Tab PO SCH (08:51)
[2020-02-29] MEDS: Aspirin 325 MG Tab.EC PO SCH (08:51)
--- NOTE | 2020-02-29 11:02 | PN ---
DATE SEEN: 02/29/2020 SUBJECTIVE: Terri Obrien is a 74-year-old female, admitted with what appeared to be a fairly significant right-sided stroke. CT MRI confirmatory. Has made remarkable progress. Right arm is probably back to near normal. Right leg, markedly improved. PT will become actively involved. Present Plavix and aspirin therapy. LABORATORY STUDIES: 02/27; white count 9100, hemoglobin 11.7. OBJECTIVE: VITAL SIGNS: 36.4, 105/58, pulse of 80, respirations 18, O2 saturation 99% on 2 L. GENERAL: Petite, fragile appearing female. Speech is fluent. NECK: Benign. No carotid bruits. CHEST: Clear in all lung torres. HEART: No ectopy or murmur. ABDOMEN: Benign. EXTREMITIES: Noted above. ASSESSMENT: Cerebrovascular accident with improving symptoms right upper and lower extremity. PLAN: Aggressive PT, Plavix, and aspirin. /[id number] 1056 YUDY/SONAL
[2020-02-29] MEDS: Doxylamine Succinate 25 MG Tab PO SCH (20:42)
[2020-02-29] MEDS: Simvastatin 20 MG Tab PO SCH (20:42)
[2020-02-29] MEDS: Levothyroxine 112 MCG Tab PO SCH (20:42)
[2020-02-29] MEDS: PARoxetine 20 MG Tab PO SCH (20:42)
[2020-02-29] MEDS: amLODIPine 2.5 MG Tab PO SCH (20:45)
[2020-03-01] MEDS: Clopidogrel 75 MG Tab PO SCH (08:33)
[2020-03-01] MEDS: Aspirin 325 MG Tab.EC PO SCH (08:33)
[2020-03-01] MEDS: Metoprolol Succinate 25 MG Tab.ER PO SCH (08:37)
--- NOTE | 2020-03-01 12:11 | PN ---
DATE SEEN: 03/01/2020 SUBJECTIVE: Terri Obrien is a 74-year-old female; admitted with rather profound right lower extremity weakness, moderate weakness of right upper extremity, and MRI confirmed a CVA in progress. Remarkable improvement. Leg is back to about 80%, right arm is almost to 100%. Vision is clear, and speech is improved. PT actively involved. Echo planned for today, carotid Doppler planned for tomorrow. LABORATORY STUDIES: From 02/28/2020, unremarkable. Sodium appears to be mildly elevated at 148, BUN 39, GFR still greater than 60, and creatinine 0.6. OBJECTIVE: VITAL SIGNS: 36.7, 131/79, pulse 77, respirations 16, and O2 of 100% on 2 L. GENERAL: Appears comfortable. NECK: Benign. No JVD. CHEST: Clear in all lung torres. HEART: No ectopy, more audible murmur today. ABDOMEN: Benign. NEUROLOGIC: Reflexes are brisk and symmetric. Sensation normal. Toes downgoing on plantar flexion. ASSESSMENT: Resolving cerebrovascular accident. PLAN: Plavix and aspirin on board, carotid and echo to follow. /[id number] 1200 /TOYAL
[2020-03-01] MEDS: Levothyroxine 112 MCG Tab PO SCH (20:46)
[2020-03-01] MEDS: amLODIPine 2.5 MG Tab PO SCH (20:47)
[2020-03-01] MEDS: PARoxetine 20 MG Tab PO SCH (20:47)
[2020-03-01] MEDS: Simvastatin 20 MG Tab PO SCH (20:47)
[2020-03-01] MEDS: Doxylamine Succinate 25 MG Tab PO SCH (20:47)
[2020-03-02 08:52] VITALS: BP 134/88; PULSE 84
[2020-03-02] MEDS: Metoprolol Succinate 25 MG Tab.ER PO SCH (08:52)
[2020-03-02] MEDS: Clopidogrel 75 MG Tab PO SCH (08:52)
[2020-03-02] MEDS: Aspirin 325 MG Tab.EC PO SCH (08:52)
--- NOTE | 2020-03-02 11:31 | US ---
INDICATION: Left posterior parietal CVA with right leg weakness. DUPLEX ULTRASOUND CEREBRAL ARTERIES: Utilizing 2-D real-time duplex Doppler spectral analysis and color flow imaging, examination of the cerebral arteries included common carotid arteries, internal carotid arteries, external carotid arteries, vertebral arteries, as well as subclavian arteries. There is a mild degree of intimal thickening and trivial degree of plaque in the bifurcation areas and branches. The plaques appear to be smooth without evidence of ulceration identified. No significant peak systolic velocity elevation was identified. ICA/CCA ratios were 1.2 and 1.3 on the right and left respectively. IMPRESSION: Relatively minimal disease with stenosis less than 50%. No ulcerative plaques were demonstrated. Report was called to Dr. Capps's voice mail at approximately 1117 hours. [facility]
== END 2020-03-02 10:50 | disposition still patient (30) | DRG 65 ==
LOC: FB.ED 09:59 → FB.MS 12:00
PROVIDERS: ADMIT Family Medicine; ATTEND Family Medicine
DX: I63.9 Cerebral infarction, unspecified (principal); E78.00 Pure hypercholesterolemia, unspecified; J18.9 Pneumonia, unspecified organism; J84.9 Interstitial pulmonary disease, unspecified; I10 Essential (primary) hypertension; J44.9 Chronic obstructive pulmonary disease, unspecified; D64.9 Anemia, unspecified; Z79.890 Hormone replacement therapy; Z79.899 Other long term (current) drug therapy; M45.9 Ankylosing spondylitis of unspecified sites in spine; Z79.82 Long term (current) use of aspirin; E78.5 Hyperlipidemia, unspecified; M81.0 Age-related osteoporosis without current pathological fracture; E03.9 Hypothyroidism, unspecified; G47.00 Insomnia, unspecified; R01.1 Cardiac murmur, unspecified; R79.89 Other specified abnormal findings of blood chemistry
CPT/HCPCS: 36415; 70450; 70551; 71045; 80048; 80053; 81001; 83880; 84443; 84484; 85025; 85027; 85651; 93005; 93306; 93880; 97110-GO; 97110-GP; 97112-GO; 97112-GP; 97116-GP; 97161-GP; 97165-GO; 97530-GO; 97530-GP; 97542-GO; 99284; 99285-25; A9270-GY

== ENCOUNTER 2020-03-02 08:19 | Inpatient (IN) | payer MEDICARE, BC ==
[2020-03-02] MEDS ORDERED: Acetaminophen 325 MG Tab PO PRN (14:15)
[2020-03-02] MEDS ORDERED: hydrOXYzine HCl 25 MG Tab PO PRN (14:16)
[2020-03-02] MEDS: Bisacodyl 10 MG Supp RECTAL PRN (15:34)
[2020-03-02] MEDS: amLODIPine 2.5 MG Tab PO SCH (21:03)
[2020-03-02] MEDS: Levothyroxine 112 MCG Tab PO SCH (21:03)
[2020-03-02] MEDS: Simvastatin 20 MG Tab PO SCH (21:03)
[2020-03-02] MEDS: PARoxetine 20 MG Tab PO SCH (21:03)
[2020-03-02] MEDS: Doxylamine Succinate 25 MG Tab PO SCH (21:03)
--- NOTE | 2020-03-03 11:36 | PN ---
DATE SEEN: 03/03/2020 SUBJECTIVE: Terri Obrien is a 74-year-old female, swing bed patient. Therapy is actively involved. Ambulating with good success. Dorsiflexion weakness primary issue. OBJECTIVE: VITAL SIGNS: Noted. GENERAL: In good spirits. NECK: Benign. CHEST: Clear. HEART: Regular. Soft murmur. ABDOMEN: Benign. SKIN: Without rash. ASSESSMENT: Weakness improving of right lower leg. Cerebrovascular accident with resultant hemiparesis, improving. PLAN: PT/OT actively involved. Plavix for a month. Aspirin full dose, lifetime. ADDENDUM: Carotid Doppler revealed minimal disease, nonsurgical. /[id number] 1129 /TOYAL
--- NOTE | 2020-03-03 12:15 | HP ---
ADMISSION DATE: 03/02/2020 HISTORY OF PRESENT ILLNESS: Terri Obrien is a 74-year-old female admitted to swing bed. Had an acute care stay. Presented with rather profound cerebrovascular accident, MRI proven left hemispheric lesion with a right upper extremity, minimally left lower extremity marked paralysis. She was placed on aspirin and Plavix. During acute care stay, had marked improvement in her upper and lower extremity weakness. Ambulation skills were improved. [place] that transfer to swing bed would be timely and appropriate. PRESENT MEDICATIONS: Include: 1. Amlodipine 2.5 mg one p.o. at bedtime, blood pressure. 2. 325 mg 1 p.o. daily aspirin, CVA prevention. 3. Dulcolax p.r.n. suppository. 4. Plavix 75 mg daily, CVA prevention. 5. Unisom 25 at bedtime p.r.n., sleep enhancement. 6. Hydroxyzine 25 mg at bedtime p.r.n. insomnia. 7. Levothyroxine 112 mcg 1 p.o. daily, hypothyroidism. 8. Metoprolol XL 25 one p.o. daily, blood pressure. 9. Paroxetine 20 mg at bedtime, mood stabilizer. 10.Simvastatin 20 mg 1 p.o. at bedtime, hyperlipidemia. ALLERGIES: None. PAST MEDICAL HISTORY: Please see [facility], acute care stay. SOCIAL HISTORY: Please see [facility], acute care stay. REVIEW OF SYSTEMS: Clinically stable. PHYSICAL EXAMINATION: VITAL SIGNS: 36.6, 1.52 m, 37.195 kg, 140/76, 18, 98.2, and 2 L. GENERAL: Appears comfortable. Speech was fluent. Very frail looking, petite gal. HEENT: Funduscopic benign. Bright TMs. Clear nasal discharge. Mouth and oropharynx clear. NECK: Benign. Thyroid small. CHEST: Clear in all lung torres. No adventitious sounds. HEART: Regular rate and rhythm. Soft murmur. ABDOMEN: Benign. No hepatosplenomegaly. and RECTAL: Deferred. EXTREMITIES: Well perfused. Mild venous stasis changes. Upper extremities appeared to be equal. Lower extremities, little weakness, particularly dorsiflexion of the ankle. CVA with right hemiparesis, improving. PLAN: PT on board. Meds on board. Treatment on board. /[id number] 1207 YUDY/SONAL
[2020-03-03] MEDS: Aspirin 325 MG Tab.EC PO SCH (12:22)
[2020-03-03] MEDS: Clopidogrel 75 MG Tab PO SCH (12:22)
[2020-03-03] MEDS: Metoprolol Succinate 25 MG Tab.ER PO SCH (12:23)
[2020-03-03] MEDS: Levothyroxine 112 MCG Tab PO SCH (20:14)
[2020-03-03] MEDS: Doxylamine Succinate 25 MG Tab PO SCH (20:15)
[2020-03-03] MEDS: PARoxetine 20 MG Tab PO SCH (20:15)
[2020-03-03] MEDS: Simvastatin 20 MG Tab PO SCH (20:15)
[2020-03-03] MEDS: amLODIPine 2.5 MG Tab PO SCH (20:16)
[2020-03-04] MEDS: Aspirin 325 MG Tab.EC PO SCH (09:27)
[2020-03-04] MEDS: Metoprolol Succinate 25 MG Tab.ER PO SCH (09:27)
[2020-03-04] MEDS: Clopidogrel 75 MG Tab PO SCH (09:28)
[2020-03-04] MEDS: Hydrocortisone 1% Oint 28 GM Tube TOP SCH ×3 (09:32→20:37)
[2020-03-04] MEDS: Levothyroxine 112 MCG Tab PO SCH (20:38)
[2020-03-04] MEDS: PARoxetine 20 MG Tab PO SCH (20:39)
[2020-03-04] MEDS: Doxylamine Succinate 25 MG Tab PO SCH (20:40)
[2020-03-04] MEDS: Simvastatin 20 MG Tab PO SCH (20:40)
[2020-03-04] MEDS: amLODIPine 2.5 MG Tab PO SCH (20:50)
[2020-03-05] MEDS: Aspirin 325 MG Tab.EC PO SCH (08:47)
[2020-03-05] MEDS: Clopidogrel 75 MG Tab PO SCH (08:48)
[2020-03-05] MEDS: Metoprolol Succinate 25 MG Tab.ER PO SCH (08:48)
[2020-03-05] MEDS: Hydrocortisone 1% Oint 28 GM Tube TOP SCH ×3 (08:48→20:23)
[2020-03-05] MEDS: Bisacodyl 10 MG Supp RECTAL PRN (12:18)
[2020-03-05] MEDS: Levothyroxine 112 MCG Tab PO SCH (20:23)
[2020-03-05] MEDS: PARoxetine 20 MG Tab PO SCH (20:24)
[2020-03-05] MEDS: Simvastatin 20 MG Tab PO SCH (20:24)
[2020-03-05] MEDS: amLODIPine 2.5 MG Tab PO SCH (20:24)
[2020-03-05] MEDS: Doxylamine Succinate 25 MG Tab PO SCH (20:24)
[2020-03-06] MEDS: Hydrocortisone 1% Oint 28 GM Tube TOP SCH ×3 (09:04→20:11)
[2020-03-06] MEDS: Metoprolol Succinate 25 MG Tab.ER PO SCH (09:04)
[2020-03-06] MEDS: Aspirin 325 MG Tab.EC PO SCH (09:04)
[2020-03-06] MEDS: Clopidogrel 75 MG Tab PO SCH (09:04)
--- NOTE | 2020-03-06 09:33 | PN ---
DATE SEEN: 03/05/2020 HISTORY: Ms. Obrien is a 74-year-old woman from [facility] with a history of chronic interstitial lung disease, chronic ankylosing spondylitis, and iron- deficiency anemia, who sustained a right CVA on approximately February 18 of this year. She developed right leg weakness such that she fell to the floor and could not get up. Her , who had had recent knee surgery, was able to get her into a chair. They waited it out overnight, and she was still weak by the next morning. They called the local first responders, who helped her get to [place]. She was found to have acute ischemic infarcts of bilateral occipital lobes, left parietal lobe, and left frontal lobe and watershed areas consistent with hypoperfusion. Following her acute care hospital stay, she was admitted to [facility] on 03/02/2020. She has been receiving physical therapy and is improving steadily. The patient denies fever, chills, cough, or dyspnea. She reports that the transient vision difficulty she had during her stroke has resolved, and she feels she is getting leg strength back very nicely. She is not having headache. She does have chronic oxygen at home for approximately the past year due to her interstitial lung disease, but she is not currently short of breath. No abdominal pain, diarrhea, swelling, or skin rash. PHYSICAL EXAMINATION: GENERAL: She is alert, comfortable, and in good spirits. She is mildly forgetful for dates but a fair historian. VITAL SIGNS: Blood pressure 102/57, pulse 88 and regular, O2 saturation 99% on 2 L nasal cannula, and temperature 98.1. Weight 82 pounds reported. SKIN: Anicteric, warm, and dry without rash. Mouth is dry. LUNGS: Have distant breath sounds. She has rhonchi and some rales at the right base. There are diminished sounds at the left base. HEART: Regular with a 3/6 systolic murmur, most prominent over her mitral area. ABDOMEN: Thin, soft, and nontender. No masses. EXTREMITIES: Show no edema at the ankles. NEUROLOGIC: Reveals her to be mildly forgetful but mental status otherwise intact. Motor exam: Upper extremities are intact and symmetric. Lower extremities show that she can fully extend her leg in the sitting position and dorsiflex her foot. She is able to stand with a very light assist for balance and stand on her left leg satisfactorily. When trying to stand on her right leg, she does tend to dip with slight weakness. ASSESSMENT: 1. Recent multiple thrombotic type strokes, question secondary to hypoperfusion event. This was possibly due to an acute myocardial infarction, as she demonstrated elevated troponin on her laboratory studies. 2. Chronic interstitial lung disease, oxygen dependent. 3. Mild mitral regurgitation with heart murmur. 4. History of iron-deficiency anemia. 5. Significant weight loss. 6. History of ankylosing spondylitis. 7. Hypothyroidism. PLAN: We will continue to provide physical therapy with anticipation of her being discharged to home within 1 week. We will continue her current medications and activity level. Continue her chronic oxygen. We will continue to provide palliative care measures for Ms. Obrien as well. /[id number] 1109 DELANEY/SONAL
[2020-03-06] MEDS: amLODIPine 2.5 MG Tab PO SCH (20:13)
[2020-03-06] MEDS: Levothyroxine 112 MCG Tab PO SCH (20:13)
[2020-03-06] MEDS: Doxylamine Succinate 25 MG Tab PO SCH (20:14)
[2020-03-06] MEDS: PARoxetine 20 MG Tab PO SCH (20:14)
[2020-03-06] MEDS: Simvastatin 20 MG Tab PO SCH (20:14)
[2020-03-07] MEDS: Clopidogrel 75 MG Tab PO SCH (09:51)
[2020-03-07] MEDS: Metoprolol Succinate 25 MG Tab.ER PO SCH (09:51)
[2020-03-07] MEDS: Aspirin 325 MG Tab.EC PO SCH (09:51)
[2020-03-07] MEDS: Hydrocortisone 1% Oint 28 GM Tube TOP SCH ×3 (09:52→20:35)
[2020-03-07] MEDS: Doxylamine Succinate 25 MG Tab PO SCH (20:35)
[2020-03-07] MEDS: PARoxetine 20 MG Tab PO SCH (20:35)
[2020-03-07] MEDS: Levothyroxine 112 MCG Tab PO SCH (20:35)
[2020-03-07] MEDS: Simvastatin 20 MG Tab PO SCH (20:35)
[2020-03-07] MEDS: amLODIPine 2.5 MG Tab PO SCH (20:35)
[2020-03-08] MEDS: Hydrocortisone 1% Oint 28 GM Tube TOP SCH (08:33)
[2020-03-08] MEDS: Aspirin 325 MG Tab.EC PO SCH (08:33)
[2020-03-08] MEDS: Metoprolol Succinate 25 MG Tab.ER PO SCH (08:34)
[2020-03-08] MEDS: Clopidogrel 75 MG Tab PO SCH (08:34)
[2020-03-08 08:35] VITALS: BP 122/75; PULSE 73
--- NOTE | 2020-03-08 10:24 | CR ---
INDICATION: Cough. CHEST, TWO VIEWS: Two PA views and lateral view of the chest were obtained 06/20 and compared with 02/24/20 and 08/16/18. The heart appeared normal in size and shape. Calcifications are noted in the arch of the aorta. Bony structures are not well seen, they appear somewhat osteoporotic. Scattered areas of moderately dense infiltration are noted about the lungs bilaterally, more severe on the left than right, appearing very similar to 08/16 compatible with fibrosis and possibly chronic inflammatory disease. Although a definite active infiltrate or effusion is not identified, it is difficult to exclude areas of superimposed patchy bronchopneumonia in these areas of probable pulmonary fibrosis. IMPRESSION: 1. No definite acute process, but difficult to exclude areas of patchy bronchopneumonia superimposed on moderately severe to severe pulmonary fibrosis. 2. Probable COPD. 3. Probable osteoporosis. 4. ASD aorta. MTDD
--- NOTE | 2020-03-09 07:58 | DISCH ---
DISCHARGE DATE: 03/08/2020 HISTORY: Ms. Obrien is a 74-year-old woman who was admitted to [facility] on 02/24/2020 with symptoms of a dense stroke, resulting in right lower extremity paralysis. MRI of the brain revealed multiple strokes in watershed area, and on admission, she was found to have significantly elevated troponin, consistent with ID. Echocardiogram revealed normal ventricular function, mild mitral regurgitation, and cardiac output of approximately 60%. The patient did not have any chest pains. The patient was started on Eliquis at 10 mg b.i.d. After a week, this was cut down to 5 mg b.i.d. She was enrolled in physical therapy and made significant improvement during her time in [facility]. By 03/08/2020, she was deemed strong enough for discharge. She is sent home in improved condition with some still ambulatory difficulty due to partial right foot drop. She is to continue to get home health care with occupational and/or physical therapy along with nursing evaluation of her vitals, medications, lungs, O2 sats, etc. She is sent home on medications as follows: 1. Plavix 75 mg daily. 2. Toprol-XL 25 mg daily. 3. Aspirin 325 mg daily. 4. Albuterol HFA p.r.n. 5. Tylenol p.r.n. 6. Simvastatin 20 mg at bedtime. 7. Paroxetine 20 mg bedtime. 8. Levothyroxine 112 mcg bedtime. 9. Doxylamine 25 mg bedtime. 10.Amlodipine 2.5 mg bedtime. She is to have followup with Dr. Goodson in 2 weeks and call should there be questions or problems prior to that time. /[id number] DELANEY/SONAL
== END 2020-03-08 11:15 | disposition home health service (06) | DRG 56 ==
LOC: FB.MS 10:51
PROVIDERS: ADMIT Family Medicine; ATTEND Family Medicine
DX: I69.351 Hemiplegia and hemiparesis following cerebral infarction affecting right dominant side (principal); I21.9 Acute myocardial infarction, unspecified; J84.9 Interstitial pulmonary disease, unspecified; I34.0 Nonrheumatic mitral (valve) insufficiency; D50.9 Iron deficiency anemia, unspecified; R63.4 Abnormal weight loss; E03.9 Hypothyroidism, unspecified; R53.1 Weakness; Z79.82 Long term (current) use of aspirin; Z79.890 Hormone replacement therapy; Z79.02 Long term (current) use of antithrombotics/antiplatelets
CPT/HCPCS: 36415; 71046; 80048; 83880; 84484; 85025; 94760; 97110-GO; 97110-GP; 97112-GO; 97116-GP; 97530-GO; 97530-GP; 97535-GO; A9270-GY

== ENCOUNTER 2020-04-12 04:36 | Emergency (ER) | payer MEDICARE, BC ==
[2020-04-12] MEDS ORDERED: Heparin Sodium 5,000 Units/ML Vial IVPUSH ONE (06:32)
[2020-04-12] MEDS ORDERED: Metoprolol Succinate 25 MG Tab.ER PO ONE (06:45)
[2020-04-12] MEDS ORDERED: Heparin Sodium/0.45% NaCl 500 ML IV SCH (06:45)
--- NOTE | 2020-04-12 07:08 | EDM.PDOC ---
ED HPI GENERAL MEDICAL PROBLEM - General Chief Complaint: General Stated Complaint: WEAKNESS Time Seen by Provider: 04/12/20 05:40 Source of Information: Reports: Patient History Limitations: Reports: No Limitations - History of Present Illness INITIAL COMMENTS - FREE TEXT/NARRATIVE: Patient presented to the ED because of weakness ,numbness and tingling over the RLE. He was trying to walk but fell micheline on her buttock instead. She didn't sustain any injury from the fall. There is no associated chest pain,but c/o nausea, no vomiting. She also has been coughing for 2 weeks, mostly non- productive without any fever or chills. - Related Data Allergies Allergy/AdvReac Type Severity Reaction Status Date / Time No Known Allergies Allergy Verified 04/12/20 05:45 Home Meds: Home Meds Albuterol [Ventolin HFA] 2 puff INH Q4HR PRN 03/22/17 [History] Levothyroxine 112 mcg PO BEDTIME 03/22/17 [History] Simvastatin 20 mg PO BEDTIME 03/22/17 [History] Doxylamine Succinate [Unisom] 25 mg PO BEDTIME 12/27/17 [History] PARoxetine [Paxil] 20 mg PO BEDTIME 12/27/17 [History] amLODIPine [Norvasc] 2.5 mg PO BEDTIME 02/25/20 [History] Acetaminophen [Tylenol] 650 mg PO Q4H PRN tablet 03/08/20 [Rx] Aspirin [Ecotrin EC] 325 mg PO DAILY tab.ec 03/08/20 [Rx] Clopidogrel [Plavix] 75 mg PO DAILY #90 tablet 03/08/20 [Rx] Metoprolol Succinate [Toprol XL] 25 mg PO DAILY #90 tab.er 03/08/20 [Rx] Past Medical History Cardiovascular History: Reports: High Cholesterol Other Cardiovascular History: has been told she has had Atrial flutter Respiratory History: Reports: Pneumonia, Recurrent, SOB, Other (See Below) Other Respiratory History: PT CURRENTLY HAS KATRIN. PNEUMONIA. 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: Other CURRICULUM DESIGNER History: has had one ovary removed Musculoskeletal History: Reports: Osteoporosis Other Musculoskeletal History: ankylosing spodylosis Endocrine/Metabolic History: Reports: Hypothyroidism - Infectious Disease History Infectious Disease History: Reports: Chicken Pox - Past Surgical History HEENT Surgical History: Reports: Visual GI Surgical History: Reports: Colonoscopy, Other (See Below) Female Surgical History: Reports: Other (See Below) Musculoskeletal Surgical History: Reports: Shoulder Surgery, Other (See Below) Social & Family History - Family History Family Medical History: Noncontributory - Tobacco Use Smoking Status *Q: Former Smoker Used Tobacco, but Quit: No - Caffeine Use Caffeine Use: Reports: Coffee Other Caffeine Use: onc cup per day Caffeine Use Comment: drinks coffee once a day ED ROS GENERAL - Review of Systems Review Of Systems: See Below Constitutional: Reports: No Symptoms HEENT: Reports: No Symptoms Respiratory: Reports: No Symptoms Cardiovascular: Reports: Chest Pain Endocrine: Reports: No Symptoms GI/Abdominal: Reports: Nausea : Reports: No Symptoms Musculoskeletal: Reports: No Symptoms Skin: Reports: No Symptoms Neurological: Reports: No Symptoms Psychiatric: Reports: No Symptoms ED EXAM, GENERAL - Physical Exam Exam: See Below Exam Limited By: No Limitations General Appearance: Alert, No Apparent Distress Ears: Normal External Exam, Normal Canal Nose: Normal Inspection, Normal Mucosa Throat/Mouth: Normal Inspection, Normal Lips, Normal Teeth Head: Atraumatic, Normocephalic Neck: Normal Inspection, Supple, Non-Tender Respiratory/Chest: No Respiratory Distress, Lungs Clear, Normal Breath Sounds Cardiovascular: Normal Peripheral Pulses, Regular Rate, Rhythm, No Edema GI/Abdominal: Normal Bowel Sounds, Soft, Non-Tender, No Organomegaly Back Exam: Normal Inspection, Full Range of Motion Extremities: Normal Inspection, Normal Range of Motion Neurological: Alert, Oriented, CN II-XII Intact, Normal Cognition Psychiatric: Normal Affect Skin Exam: Warm Course - Vital Signs Text/Narrative:: labs/EKG?head CT/CXR was discussed with the patient and verbalized full understanding EKG-NSR Trop-269.7 ASA 324 mg po x 1 Heparin bolus 5 U IV x1 Heparin drip @ 1000 U/hr Metoprolol 25 mg po x1 Zofran 4 mg IV x1 Last Recorded V/S: Last Vital Signs Temp 36.7 C 04/12/20 04:40 Pulse 99 04/12/20 07:15 Resp BP 120/70 04/12/20 07:15 Pulse Ox - Orders/Labs/Meds Orders: Active Orders 24 hr Category Date Time Status Blood Glucose Check, Bedside [RC] ONETIME Care 04/12/20 04:40 Active EKG Documentation Completion [RC] ASDIRECTED Care 04/12/20 05:25 Active Chest 1V Frontal [CR] Stat Exams 04/12/20 05:22 Taken Head wo Cont [CT] Stat Exams 04/12/20 05:25 Taken Saline Lock Insert [OM.PC] Routine Oth 04/12/20 05:30 Ordered EKG 12 Lead [EK] Routine Ther 04/12/20 05:22 Ordered Labs: Laboratory Tests 04/12/20 04/12/20 04/12/20 Range/Units 05:40 05:40 05:40 WBC 13.0 H (4.5-12.0) X10-3/uL RBC 3.73 (3.23-5.20) x10(6)uL Hgb 11.2 L (11.5-15.5) g/dL Hct 34.4 (30.0-51.3) % MCV 92.1 (80-96) fL MCH 30.1 (27.7-33.6) pg MCHC 32.7 (32.2-35.4) g/dL RDW 12.4 (11.5-15.5) % Plt Count 333 (125-369) X10(3)uL MPV 7.3 L (7.4-10.4) fL Add Manual Diff Yes Neutrophils % (Manual) 88 H (46-82) % Band Neutrophils % 3 (0-6) % Lymphocytes % (Manual) 6 L (13-37) % Monocytes % (Manual) 3 L (4-12) % PT 11.3 H (9.0-11.1) sec INR 1.05 (1.00-1.24) APTT 25.2 (24.4-33.2) SECONDS Sodium 143 (135-145) mmol/L Potassium 4.0 (3.5-5.3) mmol/L Chloride 102 (100-110) mmol/L Carbon Dioxide 36 H (21-32) mmol/L BUN 16 (7-18) mg/dL Creatinine 0.5 L (0.55-1.02) mg/dL Est Cr Clr Drug Dosing 58.26 mL/min Estimated GFR (MDRD) > 60 (>60) BUN/Creatinine Ratio 32.0 H (9-20) Glucose 126 H (80-116) mg/dL Calcium 8.6 (8.6-10.2) mg/dL Total Bilirubin 0.3 (0.1-1.3) mg/dL AST 18 D (5-25) IU/L ALT 11 L D (12-36) U/L Alkaline Phosphatase 89 (56-112) IU/L Troponin I (4.0-60.3) pg/mL Total Protein 8.2 H (6.0-8.0) g/dL Albumin 3.0 L (3.2-4.6) g/dL Globulin 5.2 g/dL Albumin/Globulin Ratio 0.6 04/12/20 Range/Units 05:40 WBC (4.5-12.0) X10-3/uL RBC (3.23-5.20) x10(6)uL Hgb (11.5-15.5) g/dL Hct (30.0-51.3) % MCV (80-96) fL MCH (27.7-33.6) pg MCHC (32.2-35.4) g/dL RDW (11.5-15.5) % Plt Count (125-369) X10(3)uL MPV (7.4-10.4) fL Add Manual Diff Neutrophils % (Manual) (46-82) % Band Neutrophils % (0-6) % Lymphocytes % (Manual) (13-37) % Monocytes % (Manual) (4-12) % PT (9.0-11.1) sec INR (1.00-1.24) APTT (24.4-33.2) SECONDS Sodium (135-145) mmol/L Potassium (3.5-5.3) mmol/L Chloride (100-110) mmol/L Carbon Dioxide (21-32) mmol/L BUN (7-18) mg/dL Creatinine (0.55-1.02) mg/dL Est Cr Clr Drug Dosing mL/min Estimated GFR (MDRD) (>60) BUN/Creatinine Ratio (9-20) Glucose (80-116) mg/dL Calcium (8.6-10.2) mg/dL Total Bilirubin (0.1-1.3) mg/dL AST (5-25) IU/L ALT (12-36) U/L Alkaline Phosphatase (56-112) IU/L Troponin I 269.7 H* (4.0-60.3) pg/mL Total Protein (6.0-8.0) g/dL Albumin (3.2-4.6) g/dL Globulin g/dL Albumin/Globulin Ratio Meds: Medications Discontinued Medications Generic Name Dose Route Start Last Admin Trade Name Freq PRN Reason Stop Dose Admin Aspirin 324 mg 04/12/20 07:12 04/12/20 07:14 Aspirin PO 04/12/20 07:13 324 mg ONETIME ONE Administration Heparin Sodium (Porcine) 5,000 units 04/12/20 06:32 04/12/20 07:15 Heparin Sodium IVPUSH 04/12/20 06:33 5,000 units ONETIME ONE Administration Heparin Sodium/Sodium Chloride 500 mls @ 20 mls/hr 04/12/20 06:45 04/12/20 07 :25 Heparin 25,000 Units In 1/2 Ns 500 Ml IV 20 mls/hr ASDIRECTED RADHA Administration Metoprolol Succinate 25 mg 04/12/20 06:45 04/12/20 07:15 Toprol Xl PO 04/12/20 06:46 25 mg ONETIME ONE Administration Ondansetron HCl 4 mg 04/12/20 07:12 04/12/20 07:23 Zofran IVPUSH 04/12/20 07:13 4 mg ONETIME ONE Administration Sodium Chloride 10 ml 04/12/20 05:30 04/12/20 07:24 Saline Flush FLUSH 10 ml ASDIRECTED PRN Administration Keep Vein Open Departure - Departure Time of Disposition: 07:15 Disposition: DC/Tfer to Acute Hospital 02 Condition: Good Clinical Impression: Acute CT - Discharge Information Referrals: Dejuan Goodson MD [Primary Care Provider] - Forms: ED Department Discharge Sepsis Event Note - Evaluation Sepsis Screening Result: No Definite Risk - Focused Exam Vital Signs: Vital Signs Temp Pulse BP 04/12/20 07:15 99 120/70 04/12/20 04:40 36.7 C Date Exam was Performed: 04/12/20 Time Exam was Performed: 10:33 - My Orders Last 24 Hours: My Active Orders 04/12/20 04:40 Blood Glucose Check, Bedside [RC] ONETIME 04/12/20 05:22 Chest 1V Frontal [CR] Stat EKG 12 Lead [EK] Routine 04/12/20 05:25 EKG Documentation Completion [RC] ASDIRECTED Head wo Cont [CT] Stat 04/12/20 05:30 Saline Lock Insert [OM.PC] Routine - Assessment/Plan Last 24 Hours: My Active Orders 04/12/20 04:40 Blood Glucose Check, Bedside [RC] ONETIME 04/12/20 05:22 Chest 1V Frontal [CR] Stat EKG 12 Lead [EK] Routine 04/12/20 05:25 EKG Documentation Completion [RC] ASDIRECTED Head wo Cont [CT] Stat 04/12/20 05:30 Saline Lock Insert [OM.PC] Routine
[2020-04-12] MEDS ORDERED: Aspirin 81 MG Tab.Chew PO ONE (07:12)
[2020-04-12] MEDS ORDERED: Ondansetron 4 MG/2 ML SDV IVPUSH ONE (07:12)
[2020-04-12 07:16] VITALS: BP 120/70; PULSE 99
[2020-04-12] MEDS: Sodium Chloride 0.9% 10 ML Syringe FLUSH PRN ×2 (07:19→07:24)
== END 2020-04-12 08:15 ==
LOC: FB.ED 04:36
DX: I21.9 Acute myocardial infarction, unspecified (principal); E78.00 Pure hypercholesterolemia, unspecified; E03.9 Hypothyroidism, unspecified; Z87.891 Personal history of nicotine dependence; Z79.02 Long term (current) use of antithrombotics/antiplatelets; Z79.899 Other long term (current) drug therapy; Z79.82 Long term (current) use of aspirin
CPT/HCPCS: 36415; 70450; 71045; 80053; 84484; 85025; 85610; 85730; 93005; 96365; 96375; 96376; 99285; A9270; J1644; J2405